=== PATIENT | male | born 1955 | race African-American/Black ===

== ENCOUNTER 2019-07-29 09:14 | Inpatient (IN) | payer OTHER ==
[2019-07-29 09:33] VITALS: BMI 31.6
--- NOTE | 2019-07-29 10:45 | HP ---
COWS - Scale Resting Pulse: 0= IN 80 or Below Sweatin= Chills/Flushing Restless Observation: 0= Sits Still Pupil Size: 0= Normal to Room Light Bone or Joint Aches: 0= None Runny Nose/ Eye Tearin= Nasal Congestion GI Upset > 30mins: 0= None Tremor Observation: 1= Tremor [place], Not Seen Yawning Observation: 0= None Anxiety or Irritability: 1=Feels Anxious/Irritable Goose Flesh Skin: 0=Smooth Skin COWS Score: 4 CIWA Score Nausea/Vomitin-No Nausea/No Vomiting Muscle Tremors: 2 Anxiety: 2 Agitation: 2 Paroxysmal Sweats: 2 Orientation: 1-Uncertain about Date Tacttile Disturbances: 2-Mild Itch/Numbness/Burn Auditory Disturbances: 0-None Visual Disturbances: 0-None Headache: 0-None Present CIWA-Ar Total Score: 11 - Admission Criteria [facility]ASAS Guidelines: Admission for Medically Managed Detox: Requires at least one of the followin. CIWA greater than 12 2. Seizures within the past 24 hours 3. Delirium tremens within the past 24 hours 4. Hallucinations within the past 24 hours 5. Acute intervention needed for co occurring medical disorder 6. Acute intervention needed for co occurring psychiatric disorder 7. Severe withdrawal that cannot be handled at a lower level of care (continued vomiting, continued diarrhea, abnormal vital signs) requiring intravenous medication and/or fluids 8. Patient presents the following: Acute intervention needed for co-occurring med or psych disorder Admission Criteria Met: Admission criteria met Admitting History and Physical - Admission Chief Complaint: alcohol withdrwal sx History of Present Illness: Patient is a 63 yo male AA homeless male with hx of alcohol and opioid dependence is here seeking inpatient detox d/t withdrawal sx. On Bup for opioid use disorder last dose two days ago, continues to use intravenous heroin. Last detox [facility] one month ago. Patient reports [facility]. Denies hx of overdose seizures or blackouts. PMHX: PVD Bilateral, Hep C treated Psych: depression, reports no meds at this time Denies SI/HI or hx of suicide attempt Others' Prescriptions Patient Name: Maciej Daigle Date: 1955 Address: [facility] [address] Sex: Male Rx Written Rx Dispensed Drug Quantity Days Supply Prescriber Name 07/11/2019 07/12/2019 buprenorphine-naloxone 8-2 mg sl film 10 10 Eddie Allen Patient Name: Maciej Daigle Date: 1955 Address: [place] [address] Sex: Male Rx Written Rx Dispensed Drug Quantity Days Supply Prescriber Name 07/09/2019 07/09/2019 buprenorphine-naloxone 8-2 mg sl film 7 7 Vero Hadley DO Patient Name: Maciej Daigle Date: 1955 Address: [address] [address] Sex: Male Rx Written Rx Dispensed Drug Quantity Days Supply Prescriber Name 06/07/2019 06/07/2019 lorazepam 1 mg tablet 1 1 Gloria Fernández MD) 05/30/2019 05/30/2019 buprenorphine-naloxone 8-2 mg sl film 30 10 Gloria Fernández) Patient Name: Maciej Daigle Date: 1955 Address: [address] [place] [address] Sex: Male Rx Written Rx Dispensed Drug Quantity Days Supply Prescriber Name 04/04/2019 04/07/2019 buprenorphine-naloxone 8-2 mg sl film 45 15 Laura Wyattradhathompson Patient Name: Maciej Daigle Date: 1955 Address: [address] [place] [address] Sex: Male Rx Written Rx Dispensed Drug Quantity Days Supply Prescriber Name 02/21/2019 02/21/2019 buprenorphine-naloxone 8-2 mg sl film 42 14 Julio Cesar Aberua History Source: Patient Limitations to Obtaining History: No Limitations - Smoking History Smoking history: Current every day smoker Have you smoked in the past 12 months: Yes Aproximately how many cigarettes per day: 10 - Alcohol/Substance Use Hx Alcohol Use: Yes ([facility]) Admission [facility] Allergies/Adverse Reactions: Allergies Allergy/AdvReac Type Severity Reaction Status Date / Time No Known Allergies Allergy Verified 07/29/19 09:29 Exam Limitations: No Limitations - Ebola screening Have you traveled outside of the country in the last 21 days: No (N) Have you had contact with anyone from an Ebola affected area: No - Review of Systems Constitutional: Loss of Appetite, Changes in sleep, Unintentional Wgt. Loss ( weight loss 20+ lb) EENT: reports: Nose Congestion Respiratory: reports: No Symptoms reported Cardiac: reports: No Symptoms Reported GI: reports: Poor Appetite, Poor Fluid Intake : reports: No Symptoms Reported Musculoskeletal: reports: Back Pain, Joint Pain Integumentary: reports: Pruritus, Other (bilateral leg edema, + lesion on right LE) Neuro: reports: Tingling (feet) Endocrine: reports: Increased Thirst Hematology: reports: No Symptoms Reported Psychiatric: reports: Orientated x3, Anxious Other Systems: Reviewed and Negative Patient History - Patient Medical History Hx Anemia: No Hx Asthma: No Hx Chronic Obstructive Pulmonary Disease (COPD): No Hx Cancer: No Hx Cardiac Disorders: No Hx Congestive Heart Failure: No Hx Hypertension: No Hx Hypercholesterolemia: No Hx Pacemaker: No HX Cerebrovascular Accident: No Hx Seizures: No Hx Dementia: No Hx Diabetes: No Hx Gastrointestinal Disorders: No Hx Liver Disease: No Hx Genitourinary Disorders: No Hx Sexually Transmitted Disorders: No Hx Renal Disease (ESRD): No Hx Thyroid Disease: No Hx Human Immunodeficiency Virus (HIV): No (NEVER TESTED & DECLINED TESTING.) Hx Hepatitis C: Yes (treated ) Hx Depression: Yes Hx Suicide Attempt: No (DENIES) Hx Bipolar Disorder: No Hx Schizophrenia: No - Patient Surgical History Past Surgical History: No - PPD History Previous Implant?: No Documented Results: Negative w/proof Date: 11/05/14 Results: 0 mm PPD to be Administered?: Yes - Smoking Cessation Smoking history: Current every day smoker Have you smoked in the past 12 months: Yes Aproximately how many cigarettes per day: 10 Cigars Per Day: 0 Hx Chewing Tobacco Use: No Initiated information on smoking cessation: Yes 'Breaking Loose' booklet given: 07/29/19 - Substance & Tx. History Hx Alcohol Use: Yes Hx Substance Use: Yes Substance Use Type: Alcohol, Heroin Hx Substance Use Treatment: Yes ([facility] one month ago ) - Substances abused Alcohol Frequency: 3-6 times per week Amount used: 1/2 pint of liquor Age of first use: 17 Date of last use: 07/28/19 Heroin Substance route: Injection Frequency: Daily Amount used: 7-10bags/bag Age of first use: 29 Date of last use: 07/28/19 Admission Physical Exam BHS - Vital Signs Vital Signs: Vital Signs - 24 hr 07/29/19 09:29 Temperature 97.5 F L Pulse Rate 64 Respiratory 18 Rate Blood Pressure 133/75 - Physical General Appearance: Yes: Disheveled, Obese, Anxious HEENTM: Yes: EOMI, Hearing grossly Normal, Normal ENT Inspection, Normocephalic , Normal Voice, DAWIT, Pharynx Normal, Tm's normal, Other (poor dentition) Respiratory: Yes: Chest Non-Tender, Lungs Clear, Normal Breath Sounds, No Respiratory Distress, No Accessory Muscle Use Neck: Yes: Within Normal Limits Breast: Yes: Breast Exam Deferred Cardiology: Yes: Regular Rhythm, Regular Rate Abdominal: Yes: Within Normal Limits Genitourinary: Yes: Within Normal Limits Back: Yes: Normal Inspection Musculoskeletal: Yes: full range of Motion, Gait Steady, Pelvis Stable Extremities: Yes: Normal Capillary Refill, Normal Inspection, Normal Range of Motion, Non-Tender 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: 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, Fully Oriented, Motor Strength 5/5 Integumentary: Yes: Normal Color, Dry, Warm, Other (lesion right upper extremitiy, no cellulitis, tinea pedis, + edema present nonpitting bilateral lower extremities) Lymphatic: Yes: Within Normal Limits - Diagnostic (1) Alcohol dependence with withdrawal, uncomplicated Current Visit: Yes Status: Acute (2) Opioid dependence, uncomplicated Current Visit: Yes Status: Acute (3) Leg skin lesion, right Current Visit: Yes Status: Acute (4) Nicotine dependence Current Visit: Yes Status: Chronic Qualifiers: Nicotine product type: cigarettes Cleared for Admission [facility] - Detox or Rehab [facility] Level of Care: Medically Managed Detox Regimen/Protocol: Ativan Breathalyzer - Breathalyzer Breathalyzer: 0 Urine Drug Screen - Test Device Lot number: [id number] Expiration date: 03/14/21 - Control Is test valid?: Yes - Results Drug screen NEGATIVE: No Urine drug screen results: FEN-Fentanyl, MOP-Opiates, BUP-Suboxone Inpatient Rehab Admission - Rehab Decision to Admit Inpatient rehab admission?: No
[2019-07-29] MEDS ORDERED: LORazepam 1 MG TABLET PO PRN (10:53)
[2019-07-29] MEDS ORDERED: NICOTINE POLACRILEX 2 MG GUM BUC PRN (10:53)
[2019-07-29] MEDS ORDERED: MAG HYDROX/AL HYDROX/SIMETH 30 ML UNIT-DOSE CUP PO PRN (10:53)
[2019-07-29] MEDS ORDERED: BISMUTH SUBSALICYLATE 524 MG/30 ML UD PO PRN (10:53)
[2019-07-29] MEDS ORDERED: IBUPROFEN 400 MG TABLET (FP) PO PRN (10:53)
[2019-07-29] MEDS ORDERED: MAGNESIUM HYDROX 2400MG/30ML ORAL SUSPENSION 30 ML CUP PO PRN (10:53)
[2019-07-29] MEDS ORDERED: MENTHOL/PHENOL 1 EACH UD MM PRN (10:53)
[2019-07-29] MEDS ORDERED: METHOCARBAMOL 500 MG TABLET PO PRN (10:53)
[2019-07-29] MEDS ORDERED: MELATONIN 5 MG TABLETS PO PRN (10:53)
[2019-07-29] MEDS ORDERED: MAGNESIUM CITRATE 300 ML BOTTLE PO PRN (10:53)
[2019-07-29] MEDS: BUPRENORPHINE/NALOXONE 8 MG/2 MG FILM PACKET SL SCH (13:39)
[2019-07-29] MEDS: BACITRACIN 15 GM TUBE TOPICAL OINTMENT TP SCH ×2 (14:27→23:34)
[2019-07-29] MEDS: LORazepam 2 MG TABLET PO SCH ×2 (20:42→23:34)
[2019-07-29] MEDS: THIAMINE HCL 100 MG TABLET (FP) PO SCH (23:34)
[2019-07-30] MEDS: LORazepam 2 MG TABLET PO SCH ×4 (05:53→23:08)
--- NOTE | 2019-07-30 10:12 | PN ---
S CIWA - CIWA Score Nausea/Vomitin-Mild Nausea/No Vomiting Muscle Tremors: 1-None Visible, but [place] Anxiety: 2 Agitation: 2 Paroxysmal Sweats: 1-Minimal Palms Moist Orientation: 0-Oriented Tacttile Disturbances: 1-Very Mild Itch/Numbness Auditory Disturbances: 0-None Visual Disturbances: 0-None Headache: 1-Very Mild CIWA-Ar Total Score: 9 BHS Progress Note (SOAP) Subjective: alert,irritable,anxious,interrupted sleep,pain in the body Objective: 07/30/19 10:08 Vital Signs Temperature 97.7 F 07/30/19 09:30 Pulse Rate 60 07/30/19 09:30 Respiratory Rate 18 07/30/19 09:30 Blood Pressure 145/74 07/30/19 09:30 O2 Sat by Pulse Oximetry (%) 07/30/19 10:11 patient will have blood tests done in am,discussed with patient Assessment: 07/30/19 10:12 withdrawal symptom Plan: continue detox ativan regimen with suboxone maintenance
[2019-07-30] MEDS: NICOTINE 14 MG/24 HOURS TOPICAL PATCH TD SCH (10:38)
[2019-07-30] MEDS: PRENATAL VITAMINS W/ FOLIC ACID TABLET (FP) PO SCH (10:39)
[2019-07-30] MEDS: BUPRENORPHINE/NALOXONE 8 MG/2 MG FILM PACKET SL SCH (10:39)
[2019-07-30] MEDS: BACITRACIN 15 GM TUBE TOPICAL OINTMENT TP SCH ×2 (10:41→23:31)
[2019-07-30 11:14] LABS: EPI CELLS 5.5 /HPF (0-5/HPF); HYALINE CASTS 7 /lpf (0-8); PH,URINE 7.5 (5.0-8.0); URINE APPEARANCE CLEAR; URINE BACTERIA 535.3 /hpf (NEGATIVE); URINE BILIRUBIN NEGATIVE (NEGATIVE); URINE COLOR YELLOW; URINE GLUCOSE (UA) NEGATIVE (NEGATIVE); URINE KETONE TRACE (NEGATIVE); URINE LEUK ESTERASE TRACE (NEGATIVE); URINE NITRITE NEGATIVE (NEGATIVE); URINE PROTEIN NEGATIVE (NEGATIVE); URINE RBC 1 /hpf (0-4); URINE WBC 6 /hpf (0-5)
--- NOTE | 2019-07-30 14:54 | EKG ---
Test Reason : Blood Pressure : / mmHG Vent. Rate : 065 BPM Atrial Rate : 065 BPM P-R Int : 162 ms QRS Dur : 098 ms QT Int : 448 ms P-R-T Axes : 074 013 007 degrees QTc Int : 465 ms NORMAL SINUS RHYTHM NORMAL ECG NO PREVIOUS ECGS AVAILABLE Confirmed by ALEXANDER BURROWS MD ([id number]) on 07/30/2019 2:53:56 PM Referred By: Confirmed By:ALEXANDER BURROWS MD
[2019-07-30] MEDS: THIAMINE HCL 100 MG TABLET (FP) PO SCH (23:08)
[2019-07-31] MEDS: LORazepam 1 MG TABLET PO SCH ×4 (06:57→23:04)
[2019-07-31 09:53] LABS: HEMATOCRIT 40.3 % (35.4-49); HEMOGLOBIN 13.2 GM/dL (11.7-16.9); MCH 31.4 pg (25.7-33.7); MCHC 32.8 g/dl (32.0-35.9); MEAN CELL VOLUME 95.5 fl (80-96); MEAN PLT VOLUME 8.4 fl (7.5-11.1); PLATELET COUNT 317 K/MM3 (134-434); RBC 4.21 M/mm3 (4.00-5.60); RDW 13.3 % (11.9-15.9)
[2019-07-31] MEDS: PRENATAL VITAMINS W/ FOLIC ACID TABLET (FP) PO SCH (10:23)
[2019-07-31] MEDS: NICOTINE 14 MG/24 HOURS TOPICAL PATCH TD SCH (10:23)
[2019-07-31] MEDS: BUPRENORPHINE/NALOXONE 8 MG/2 MG FILM PACKET SL SCH (10:23)
--- NOTE | 2019-07-31 10:24 | PN ---
[facility] CIWA - CIWA Score Nausea/Vomitin-Mild Nausea/No Vomiting Muscle Tremors: 2 Anxiety: 2 Agitation: 2 Paroxysmal Sweats: No Perspiration Orientation: 0-Oriented Tacttile Disturbances: 1-Very Mild Itch/Numbness Auditory Disturbances: 0-None Visual Disturbances: 0-None Headache: 1-Very Mild CIWA-Ar Total Score: 9 S Progress Note (SOAP) Subjective: alert,irritable,anxious,interrupted sleep,tremor,painin the body Objective: 07/31/19 10:25 Vital Signs Temperature 98.3 F 07/31/19 09:24 Pulse Rate 70 07/31/19 09:24 Respiratory Rate 18 07/31/19 09:24 Blood Pressure 107/52 L 07/31/19 09:24 O2 Sat by Pulse Oximetry (%) 07/31/19 10:25 Laboratory Last Values WBC 7.0 K/mm3 (4.0-10.0) 07/31/19 08:00 RBC 4.21 M/mm3 (4.00-5.60) 07/31/19 08:00 Hgb 13.2 GM/dL (11.7-16.9) 07/31/19 08:00 Hct 40.3 % (35.4-49) 07/31/19 08:00 MCV 95.5 fl (80-96) 07/31/19 08:00 MCH 31.4 pg (25.7-33.7) 07/31/19 08:00 MCHC 32.8 g/dl (32.0-35.9) 07/31/19 08:00 RDW 13.3 % (11.9-15.9) 07/31/19 08:00 Plt Count 317 K/MM3 (134-434) D 07/31/19 08:00 MPV 8.4 fl (7.5-11.1) 07/31/19 08:00 Urine Color Yellow 07/30/19 08:15 Urine Appearance Clear 07/30/19 08:15 Urine pH 7.5 (5.0-8.0) 07/30/19 08:15 Ur Specific [place] 1.017 (1.010-1.035) 07/30/19 08:15 Urine Protein Negative (NEGATIVE) 07/30/19 08:15 Urine Glucose (UA) Negative (NEGATIVE) 07/30/19 08:15 Urine Ketones Trace (NEGATIVE) H 07/30/19 08:15 Urine Blood Negative (NEGATIVE) 07/30/19 08:15 Urine Nitrite Negative (NEGATIVE) 07/30/19 08:15 Urine Bilirubin Negative (NEGATIVE) 07/30/19 08:15 Urine Urobilinogen 2.0 mg/dL (0.2-1.0) 07/30/19 08:15 Ur Leukocyte Esterase Trace (NEGATIVE) 07/30/19 08:15 Urine WBC (Auto) 6 /hpf (0-5) 07/30/19 08:15 Urine RBC (Auto) 1 /hpf (0-4) 07/30/19 08:15 Urine Casts (Auto) 7 /lpf (0-8) 07/30/19 08:15 U Epithel Cells (Auto) 5.5 /HPF (0-5/HPF) 07/30/19 08:15 Urine Bacteria (Auto) 535.3 /hpf (NEGATIVE) 07/30/19 08:15 labs pending Assessment: 07/31/19 10:26 withdrawal symptom Plan: continued detox ativan regimen and suboxone maintenance
[2019-07-31] MEDS: BACITRACIN 15 GM TUBE TOPICAL OINTMENT TP SCH ×2 (10:25→23:04)
[2019-07-31 10:56] LABS: BILIRUBIN,TOTAL 0.8 mg/dL (0.2-1); BLOOD UREA NITROGEN 5.2 mg/dL (7-18); CALCIUM 8.9 mg/dL (8.5-10.1); CREATININE 0.8 mg/dL (0.55-1.3); POTASSIUM 3.6 mmol/L (3.5-5.1); TOT PROT 6.3 g/dl (6.4-8.2)
[2019-07-31] MEDS: THIAMINE HCL 100 MG TABLET (FP) PO SCH (23:04)
[2019-08-01] MEDS ORDERED: LORazepam 0.5 MG TABLET PO PRN
[2019-08-01] MEDS: LORazepam 0.5 MG TABLET PO SCH ×4 (06:07→23:11)
[2019-08-01] MEDS: PRENATAL VITAMINS W/ FOLIC ACID TABLET (FP) PO SCH (10:27)
[2019-08-01] MEDS: BUPRENORPHINE/NALOXONE 8 MG/2 MG FILM PACKET SL SCH (10:27)
[2019-08-01] MEDS: NICOTINE 14 MG/24 HOURS TOPICAL PATCH TD SCH (10:27)
[2019-08-01] MEDS: BACITRACIN 15 GM TUBE TOPICAL OINTMENT TP SCH ×2 (10:29→23:11)
--- NOTE | 2019-08-01 10:47 | PN ---
S CIWA - CIWA Score Nausea/Vomitin-No Nausea/No Vomiting Muscle Tremors: 1-None Visible, but [place] Anxiety: 1-Mildly Anxious Agitation: 1-Slight > Activity Paroxysmal Sweats: No Perspiration Orientation: 0-Oriented Tacttile Disturbances: 1-Very Mild Itch/Numbness Auditory Disturbances: 0-None Visual Disturbances: 0-None Headache: 1-Very Mild CIWA-Ar Total Score: 5 BHS Progress Note (SOAP) Subjective: alert,irritable,anxious,interrupted sleep Objective: 08/01/19 10:47 Vital Signs Temperature 98.9 F 08/01/19 09:56 Pulse Rate 71 08/01/19 09:56 Respiratory Rate 18 08/01/19 09:56 Blood Pressure 148/63 08/01/19 09:56 O2 Sat by Pulse Oximetry (%) Assessment: 08/01/19 10:47 withdrawal symptom Plan: continue detox ativan regimen,discharge in am
[2019-08-01] MEDS: THIAMINE HCL 100 MG TABLET (FP) PO SCH (23:11)
[2019-08-02] MEDS ORDERED: LORazepam 0.5 MG TABLET PO ONE (05:00)
--- NOTE | 2019-08-02 08:47 | DS ---
[facility] Detox Discharge Summary Admission Date: 07/29/19 Discharge Date: 08/02/19 - History Present History: Alcohol Dependence, Opioid Dependence - Physical Exam Results Vital Signs: Vital Signs Temperature 97.9 F 08/02/19 05:00 Pulse Rate 64 08/02/19 05:00 Respiratory Rate 20 08/02/19 05:00 Blood Pressure 107/60 08/02/19 05:00 O2 Sat by Pulse Oximetry (%) Pertinent Admission Physical Exam Findings: Vital Signs Temperature 97.9 F 08/02/19 05:00 Pulse Rate 64 08/02/19 05:00 Respiratory Rate 20 08/02/19 05:00 Blood Pressure 107/60 08/02/19 05:00 O2 Sat by Pulse Oximetry (%) Laboratory Tests 07/30/19 07/31/19 07/31/19 08:15 08:00 08:00 WBC 7.0 RBC 4.21 Hgb 13.2 Hct 40.3 MCV 95.5 MCH 31.4 MCHC 32.8 RDW 13.3 Plt Count 317 D MPV 8.4 Sodium 144 Potassium 3.6 Chloride 105 Carbon Dioxide 31 Anion Gap 7 L BUN 5.2 L Creatinine 0.8 Est GFR (CKD-EPI)AfAm 110.96 Est GFR (CKD-EPI)NonAf 95.74 Random Glucose 90 Calcium 8.9 Total Bilirubin 0.8 AST 10 L ALT 16 Alkaline Phosphatase 115 Total Protein 6.3 L Albumin 3.0 L Urine Color Yellow Urine Appearance Clear Urine pH 7.5 Ur Specific [place] 1.017 Urine Protein Negative Urine Glucose (UA) Negative Urine Ketones Trace H Urine Blood Negative Urine Nitrite Negative Urine Bilirubin Negative Urine Urobilinogen 2.0 Ur Leukocyte Esterase Trace Urine WBC (Auto) 6 Urine RBC (Auto) 1 Urine Casts (Auto) 7 U Epithel Cells (Auto) 5.5 Urine Bacteria (Auto) 535.3 RPR Titer 07/31/19 08:00 WBC RBC Hgb Hct MCV MCH MCHC RDW Plt Count MPV Sodium Potassium Chloride Carbon Dioxide Anion Gap BUN Creatinine Est GFR (CKD-EPI)AfAm Est GFR (CKD-EPI)NonAf Random Glucose Calcium Total Bilirubin AST ALT Alkaline Phosphatase Total Protein Albumin Urine Color Urine Appearance Urine pH Ur Specific [place] Urine Protein Urine Glucose (UA) Urine Ketones Urine Blood Urine Nitrite Urine Bilirubin Urine Urobilinogen Ur Leukocyte Esterase Urine WBC (Auto) Urine RBC (Auto) Urine Casts (Auto) U Epithel Cells (Auto) Urine Bacteria (Auto) RPR Titer Nonreactive aaox3 ambulating no acute distress - Treatment Hospital Course: Detox Protocol Followed, Detoxed Safely, Responded well, Discharged Condition Good, Rehab Referral Accepted Patient has Accepted a Rehab Referral to: pt referred to [facility] rehab - Medication Discharge Medications: Ambulatory Orders NK [No Known Home Medication] 11/03/14 - Diagnosis (1) Alcohol dependence with withdrawal, uncomplicated Current Visit: Yes Status: Chronic (2) Leg skin lesion, right Current Visit: Yes Status: Acute (3) Opioid dependence, uncomplicated Current Visit: Yes Status: Acute (4) Nicotine dependence Current Visit: Yes Status: Chronic Qualifiers: Nicotine product type: cigarettes Substance use status: uncomplicated Qualified Code(s): F17.210 - Nicotine dependence, cigarettes, uncomplicated (5) Drug-induced mood disorder Current Visit: No Status: Acute (6) Heroin dependence Current Visit: No Status: Acute (7) Syncope Current Visit: No Status: Acute (8) Insomnia Current Visit: No Status: Chronic (9) Schizoaffective disorder Current Visit: No Status: Suspected - AMA Did Patient Leave Against Medical Advice: No
[2019-08-02] MEDS: BUPRENORPHINE/NALOXONE 8 MG/2 MG FILM PACKET SL SCH (10:07)
[2019-08-02] MEDS: NICOTINE 14 MG/24 HOURS TOPICAL PATCH TD SCH (10:08)
[2019-08-02] MEDS: PRENATAL VITAMINS W/ FOLIC ACID TABLET (FP) PO SCH (10:08)
[2019-08-02] MEDS: BACITRACIN 15 GM TUBE TOPICAL OINTMENT TP SCH (10:08)
[2019-08-02 14:06] VITALS: BP 136/64; PULSE 72; TEMP 98.1
== END 2019-08-02 15:16 | disposition home or self-care (01) | DRG 773 ==
LOC: YASAS 09:14 → Y6N 11:07
PROVIDERS: ADMIT Allergy & Immunology; ATTEND Allergy & Immunology
PROC: HZ2ZZZZ Detoxification Services for Substance Abuse Treatment (ICD-10-PCS; principal; 2019-07-29)
DX: F11.23 Opioid dependence with withdrawal (principal); F10.230 Alcohol dependence with withdrawal, uncomplicated; F17.210 Nicotine dependence, cigarettes, uncomplicated; F19.24 Other psychoactive substance dependence with psychoactive substance-induced mood disorder; F25.9 Schizoaffective disorder, unspecified; G47.00 Insomnia, unspecified; L98.9 Disorder of the skin and subcutaneous tissue, unspecified; E66.9 Obesity, unspecified; Z68.31 Body mass index [BMI] 31.0-31.9, adult
CPT/HCPCS: 36415; 80053; 81003; 85027; 86593; 93005; 93010

== ENCOUNTER 2020-10-31 12:39 | Inpatient (IN) | payer OTHER ==
[2020-10-31 16:34] VITALS: BMI 32.3
[2020-10-31] MEDS ORDERED: NICOTINE POLACRILEX 2 MG GUM BUC PRN (18:09)
[2020-10-31] MEDS ORDERED: METHOCARBAMOL 500 MG TABLET PO PRN (18:09)
[2020-10-31] MEDS ORDERED: BISMUTH SUBSALICYLATE 524 MG/30 ML UD PO PRN (18:09)
[2020-10-31] MEDS ORDERED: MENTHOL/PHENOL 1 EACH UD MM PRN (18:09)
[2020-10-31] MEDS ORDERED: MELATONIN 5 MG TABLETS PO PRN (18:09)
[2020-10-31] MEDS ORDERED: cloNIDine HCL 0.1 MG TABLET PO PRN (18:09)
[2020-10-31] MEDS ORDERED: ACETAMINOPHEN 325 MG TABLET (FP) PO PRN ×2 (18:09)
[2020-10-31] MEDS ORDERED: MAGNESIUM CITRATE 300 ML BOTTLE PO PRN (18:09)
[2020-10-31] MEDS ORDERED: IBUPROFEN 400 MG TABLET (FP) PO PRN (18:09)
[2020-10-31] MEDS ORDERED: ONDANSETRON *ODT* 4 MG TABLET SL PRN (18:09)
[2020-10-31] MEDS ORDERED: METHADONE HCL 10 MG TABLET (FOR DETOX USE ONLY) PO ONE (18:09)
[2020-10-31] MEDS ORDERED: MAGNESIUM HYDROX 2400MG/30ML ORAL SUSPENSION 30 ML CUP PO PRN (18:09)
[2020-10-31] MEDS ORDERED: MAG HYDROX/AL HYDROX/SIMETH 30 ML UNIT-DOSE CUP PO PRN (18:09)
[2020-10-31] MEDS ORDERED: DICLOFENAC POTASSIUM 50 MG PO PRN (18:13)
[2020-10-31] MEDS ORDERED: hydrOXYzine PAMOATE 25 MG CAPSULE (FP) PO PRN (21:01)
[2020-10-31] MEDS: THIAMINE HCL 100 MG TABLET (FP) PO SCH (22:57)
[2020-11-01] MEDS ORDERED: METHADONE HCL 5 MG TABLET (FOR DETOX USE ONLY) ONE (09:04)
[2020-11-01] MEDS ORDERED: METHADONE HCL 10 MG TABLET (FOR DETOX USE ONLY) ONE (09:05)
[2020-11-01 09:52] LABS: HEMATOCRIT 41.7 % (35.4-49); HEMOGLOBIN 13.6 GM/dL (11.7-16.9); MCH 31.8 pg (25.7-33.7); MCHC 32.6 g/dl (32.0-35.9); MEAN CELL VOLUME 97.7 fl (80-96); MEAN PLT VOLUME 9.1 fl (7.5-11.1); PLATELET COUNT 273 K/MM3 (134-434); RBC 4.27 M/mm3 (4.00-5.60); RDW 12.8 % (11.9-15.9); WHITE BLOOD COUNT 4.9 K/mm3 (4.0-10.0)
[2020-11-01] MEDS ORDERED: METHADONE (DETOX) 20 MG, METHADONE (DETOX) 5 MG PO ONE (10:00)
[2020-11-01 10:26] LABS: POTASSIUM 4.1 mmol/L (3.5-5.1)
[2020-11-01 10:31] LABS: CALCIUM 9.8 mg/dL (8.5-10.1)
[2020-11-01 10:32] LABS: ALBUMIN 3.5 g/dl (3.4-5.0); BLOOD UREA NITROGEN 10.6 mg/dL (7-18)
[2020-11-01 10:35] LABS: CREATININE 0.9 mg/dL (0.55-1.3)
[2020-11-01 10:36] LABS: BILIRUBIN,TOTAL 0.8 mg/dL (0.2-1); TOT PROT 7.1 g/dl (6.4-8.2)
[2020-11-01] MEDS: NICOTINE 7 MG/24 HOURS TOPICAL PATCH TD SCH ×2 (11:12→11:18)
[2020-11-01] MEDS: PRENATAL VITAMINS W/ FOLIC ACID TABLET (FP) PO SCH (11:12)
[2020-11-01] MEDS: HYDROCHLOROTHIAZIDE 25 MG TABLET (FP) PO SCH (11:12)
[2020-11-01] MEDS: THIAMINE HCL 100 MG TABLET (FP) PO SCH (23:09)
[2020-11-02] MEDS ORDERED: METHADONE HCL 10 MG TABLET (FOR DETOX USE ONLY) PO ONE (10:00)
[2020-11-02] MEDS: HYDROCHLOROTHIAZIDE 25 MG TABLET (FP) PO SCH (11:32)
[2020-11-02] MEDS: NICOTINE 7 MG/24 HOURS TOPICAL PATCH TD SCH (11:32)
[2020-11-02] MEDS: PRENATAL VITAMINS W/ FOLIC ACID TABLET (FP) PO SCH (11:33)
[2020-11-02] MEDS ORDERED: ONDANSETRON *ODT* 4 MG TABLET SL ONE (16:08)
[2020-11-02] MEDS: FAMOTIDINE 20 MG TABLET PO SCH ×2 (18:42→23:14)
[2020-11-02] MEDS: THIAMINE HCL 100 MG TABLET (FP) PO SCH (23:14)
[2020-11-03] MEDS ORDERED: METHADONE HCL 10 MG TABLET (FOR DETOX USE ONLY) ONE (09:29)
[2020-11-03] MEDS ORDERED: METHADONE HCL 5 MG TABLET (FOR DETOX USE ONLY) ONE (09:29)
[2020-11-03] MEDS ORDERED: METHADONE (DETOX) 10 MG, METHADONE (DETOX) 5 MG PO ONE (10:00)
[2020-11-03] MEDS: PRENATAL VITAMINS W/ FOLIC ACID TABLET (FP) PO SCH (11:08)
[2020-11-03] MEDS: FAMOTIDINE 20 MG TABLET PO SCH ×2 (11:09→23:15)
[2020-11-03] MEDS: NICOTINE 7 MG/24 HOURS TOPICAL PATCH TD SCH (11:09)
[2020-11-03] MEDS: HYDROCHLOROTHIAZIDE 25 MG TABLET (FP) PO SCH (11:09)
[2020-11-03] MEDS: THIAMINE HCL 100 MG TABLET (FP) PO SCH (23:15)
[2020-11-04] MEDS ORDERED: METHADONE HCL 10 MG TABLET (FOR DETOX USE ONLY) PO ONE (10:00)
[2020-11-04] MEDS: PRENATAL VITAMINS W/ FOLIC ACID TABLET (FP) PO SCH (10:11)
[2020-11-04] MEDS: HYDROCHLOROTHIAZIDE 25 MG TABLET (FP) PO SCH (10:12)
[2020-11-04] MEDS: FAMOTIDINE 20 MG TABLET PO SCH ×2 (10:14→23:33)
[2020-11-04] MEDS: NICOTINE 7 MG/24 HOURS TOPICAL PATCH TD SCH (10:14)
[2020-11-04] MEDS: THIAMINE HCL 100 MG TABLET (FP) PO SCH (23:33)
[2020-11-05] MEDS ORDERED: METHADONE HCL 5 MG TABLET (FOR DETOX USE ONLY) PO ONE (06:00)
[2020-11-05 09:19] VITALS: BP 131/81; PULSE 106; TEMP 97.3
== END 2020-11-05 09:55 | disposition home or self-care (01) | DRG 773 ==
LOC: YASAS 12:39 → Y6N 19:01
PROVIDERS: ADMIT Allergy & Immunology; ATTEND Allergy & Immunology
PROC: HZ2ZZZZ Detoxification Services for Substance Abuse Treatment (ICD-10-PCS; principal; 2020-10-31)
DX: F11.23 Opioid dependence with withdrawal (principal); F10.20 Alcohol dependence, uncomplicated; F17.210 Nicotine dependence, cigarettes, uncomplicated; F41.9 Anxiety disorder, unspecified; I10 Essential (primary) hypertension; I73.9 Peripheral vascular disease, unspecified; K21.9 Gastro-esophageal reflux disease without esophagitis; L98.8 Other specified disorders of the skin and subcutaneous tissue; M19.90 Unspecified osteoarthritis, unspecified site; R74.8 Abnormal levels of other serum enzymes; R60.0 Localized edema
CPT/HCPCS: 36415; 80053; 85027; 86780; 93005; 93010; C9803; U0003

== ENCOUNTER 2021-03-04 17:12 | Inpatient (IN) | payer OTHER ==
[2021-03-04 18:56] VITALS: BMI 26.7
[2021-03-04] MEDS ORDERED: MENTHOL/PHENOL 1 EACH UD MM PRN (22:20)
[2021-03-04] MEDS ORDERED: IBUPROFEN 400 MG TABLET (FP) PO PRN (22:20)
[2021-03-04] MEDS ORDERED: ACETAMINOPHEN 325 MG TABLET (FP) PO PRN ×2 (22:20)
[2021-03-04] MEDS ORDERED: MAGNESIUM HYDROX 2400MG/30ML ORAL SUSPENSION 30 ML CUP PO PRN (22:20)
[2021-03-04] MEDS ORDERED: METHOCARBAMOL 500 MG TABLET PO PRN (22:20)
[2021-03-04] MEDS ORDERED: MAGNESIUM CITRATE 300 ML BOTTLE PO PRN (22:20)
[2021-03-04] MEDS ORDERED: NICOTINE POLACRILEX 2 MG GUM BUC PRN (22:20)
[2021-03-04] MEDS ORDERED: MAG HYDROX/AL HYDROX/SIMETH 30 ML UNIT-DOSE CUP PO PRN (22:20)
[2021-03-04] MEDS ORDERED: BISMUTH SUBSALICYLATE 524 MG/30 ML PO PRN (22:20)
[2021-03-04] MEDS ORDERED: methaDONE HCL 10 MG TABLET (FOR DETOX USE ONLY) PO ONE (22:27)
[2021-03-04] MEDS ORDERED: cloNIDine HCL 0.1 MG TABLET PO PRN (22:27)
[2021-03-04] MEDS ORDERED: methaDONE HCL 10 MG TABLET (FOR DETOX USE ONLY) ONE (23:25)
[2021-03-05 10:42] LABS: HEMATOCRIT 38.3 % (35.4-49); HEMOGLOBIN 12.6 GM/dL (11.7-16.9); MCH 31.5 pg (25.7-33.7); MCHC 32.7 g/dl (32.0-35.9); MEAN CELL VOLUME 96.3 fl (80-96); MEAN PLT VOLUME 8.7 fl (7.5-11.1); PLATELET COUNT 305 10^3/uL (134-434); RBC 3.98 M/mm3 (4.00-5.60); RDW 12.8 % (11.9-15.9)
[2021-03-05 10:43] LABS: CALCIUM 9.1 mg/dL (8.5-10.1)
[2021-03-05 10:45] LABS: ALBUMIN 3.4 g/dl (3.4-5.0)
[2021-03-05 10:47] LABS: CREATININE 0.8 mg/dL (0.55-1.3)
[2021-03-05 10:49] LABS: BILIRUBIN,TOTAL 0.6 mg/dL (0.2-1); TOT PROT 6.8 g/dl (6.4-8.2)
[2021-03-05] MEDS ORDERED: methaDONE HCL 10 MG TABLET (FOR DETOX USE ONLY) ONE (11:07)
[2021-03-05] MEDS: PRENATAL VITAMINS W/ FOLIC ACID TABLET (FP) PO SCH (11:08)
[2021-03-05] MEDS: FAMOTIDINE 20 MG TABLET PO SCH ×2 (11:08→22:39)
[2021-03-05] MEDS: NICOTINE 14 MG/24 HOURS TOPICAL PATCH TD SCH (11:09)
[2021-03-05] MEDS: MELATONIN 5 MG TABLETS PO SCH (22:39)
[2021-03-05] MEDS: THIAMINE HCL 100 MG TABLET (FP) PO SCH (22:40)
[2021-03-06] MEDS ORDERED: methaDONE HCL 10 MG TABLET (FOR DETOX USE ONLY) PO ONE (10:00)
[2021-03-06] MEDS: ONDANSETRON *ODT* 4 MG TABLET SL PRN (10:41)
[2021-03-06] MEDS: HYDROCHLOROTHIAZIDE 25 MG TABLET (FP) PO SCH (11:50)
[2021-03-06] MEDS: PRENATAL VITAMINS W/ FOLIC ACID TABLET (FP) PO SCH (11:50)
[2021-03-06] MEDS: FAMOTIDINE 20 MG TABLET PO SCH ×2 (11:50→22:46)
[2021-03-06] MEDS: NICOTINE 14 MG/24 HOURS TOPICAL PATCH TD SCH (11:50)
[2021-03-06] MEDS: THIAMINE HCL 100 MG TABLET (FP) PO SCH (22:46)
[2021-03-06] MEDS: MELATONIN 5 MG TABLETS PO SCH (22:46)
[2021-03-07] MEDS ORDERED: methaDONE HCL 10 MG TABLET (FOR DETOX USE ONLY) ONE (09:02)
[2021-03-07] MEDS: HYDROCHLOROTHIAZIDE 25 MG TABLET (FP) PO SCH (10:37)
[2021-03-07] MEDS: NICOTINE 14 MG/24 HOURS TOPICAL PATCH TD SCH (10:37)
[2021-03-07] MEDS: FAMOTIDINE 20 MG TABLET PO SCH ×2 (10:37→22:22)
[2021-03-07] MEDS: PRENATAL VITAMINS W/ FOLIC ACID TABLET (FP) PO SCH (10:39)
[2021-03-07] MEDS: THIAMINE HCL 100 MG TABLET (FP) PO SCH (22:22)
[2021-03-07] MEDS: MELATONIN 5 MG TABLETS PO SCH (22:22)
[2021-03-08] MEDS ORDERED: methaDONE HCL 10 MG TABLET (FOR DETOX USE ONLY) PO ONE (10:00)
[2021-03-08] MEDS ORDERED: LOPERAMIDE HCL 2 MG CAPSULE PO ONE (10:23)
[2021-03-08] MEDS: HYDROCHLOROTHIAZIDE 25 MG TABLET (FP) PO SCH (10:25)
[2021-03-08] MEDS: NICOTINE 14 MG/24 HOURS TOPICAL PATCH TD SCH (10:26)
[2021-03-08] MEDS: ONDANSETRON *ODT* 4 MG TABLET SL PRN (10:26)
[2021-03-08] MEDS: FAMOTIDINE 20 MG TABLET PO SCH ×2 (10:26→22:56)
[2021-03-08] MEDS: PRENATAL VITAMINS W/ FOLIC ACID TABLET (FP) PO SCH (10:27)
[2021-03-08] MEDS: THIAMINE HCL 100 MG TABLET (FP) PO SCH (22:56)
[2021-03-08] MEDS: MELATONIN 5 MG TABLETS PO SCH (22:56)
[2021-03-09 09:04] VITALS: BP 113/80; PULSE 99; TEMP 98.2
[2021-03-09] MEDS: NICOTINE 14 MG/24 HOURS TOPICAL PATCH TD SCH (10:47)
[2021-03-09] MEDS: HYDROCHLOROTHIAZIDE 25 MG TABLET (FP) PO SCH (10:47)
[2021-03-09] MEDS: PRENATAL VITAMINS W/ FOLIC ACID TABLET (FP) PO SCH (10:47)
[2021-03-09] MEDS: FAMOTIDINE 20 MG TABLET PO SCH (10:47)
== END 2021-03-09 12:20 | disposition other institution (70) | DRG 773 ==
LOC: YASAS 17:12 → UNDOADMIN 03-05 02:31 → Y3N 03-05 02:31 → Y6N 03-05 09:04
PROVIDERS: ADMIT Allergy & Immunology; ATTEND Allergy & Immunology
PROC: HZ2ZZZZ Detoxification Services for Substance Abuse Treatment (ICD-10-PCS; principal; 2021-03-05)
DX: F11.23 Opioid dependence with withdrawal (principal); F17.210 Nicotine dependence, cigarettes, uncomplicated; I10 Essential (primary) hypertension; I73.9 Peripheral vascular disease, unspecified; K21.9 Gastro-esophageal reflux disease without esophagitis; M19.90 Unspecified osteoarthritis, unspecified site; R74.8 Abnormal levels of other serum enzymes
CPT/HCPCS: 36415; 80053; 85027; 86780; C9803; Q0162; U0003; U0005

== ENCOUNTER 2021-03-09 12:40 | Inpatient (IN) | payer OTHER ==
[2021-03-09] MEDS ORDERED: ACETAMINOPHEN 325 MG TABLET (FP) PO PRN (15:33)
[2021-03-09] MEDS ORDERED: LOPERAMIDE HCL 2 MG CAPSULE PO PRN (15:33)
[2021-03-09] MEDS ORDERED: MAG HYDROX/AL HYDROX/SIMETH 30 ML UNIT-DOSE CUP PO PRN (15:33)
[2021-03-09] MEDS ORDERED: MAGNESIUM CITRATE 300 ML BOTTLE PO PRN (15:33)
[2021-03-09] MEDS ORDERED: NICOTINE POLACRILEX 2 MG GUM BC PRN (15:33)
[2021-03-09] MEDS ORDERED: guaiFENesin 200 MG/10 ML 10 ML UNIT-DOSE CUPS PO PRN (15:33)
[2021-03-09] MEDS ORDERED: MAGNESIUM HYDROX 2400MG/30ML ORAL SUSPENSION 30 ML CUP PO PRN (15:33)
[2021-03-09] MEDS ORDERED: P-EPHED 60MG/TRIPROLIDI 2.5MG TABLET PO PRN (15:33)
[2021-03-09] MEDS ORDERED: IBUPROFEN 400 MG TABLET (FP) PO PRN (15:33)
[2021-03-09] MEDS: hydrOXYzine PAMOATE 25 MG CAPSULE (FP) PO SCH ×2 (19:36→21:54)
[2021-03-09] MEDS: MELATONIN 5 MG TABLETS PO SCH (21:54)
[2021-03-09] MEDS: THIAMINE HCL 100 MG TABLET (FP) PO SCH (21:54)
[2021-03-09] MEDS: FAMOTIDINE 20 MG TABLET PO SCH (21:54)
[2021-03-10] MEDS: hydrOXYzine PAMOATE 25 MG CAPSULE (FP) PO SCH ×5 (06:57→22:56)
[2021-03-10 07:29] VITALS: TEMP 97.8
[2021-03-10] MEDS ORDERED: HYDROCHLOROTHIAZIDE 25 MG TABLET (FP) PO SCH (10:00)
[2021-03-10] MEDS ORDERED: NICOTINE 14 MG/24 HOURS TOPICAL PATCH TD SCH (10:00)
[2021-03-10] MEDS ORDERED: PRENATAL VITAMINS W/ FOLIC ACID TABLET (FP) PO SCH (10:00)
[2021-03-10] MEDS: FAMOTIDINE 20 MG TABLET PO SCH ×2 (10:08→22:56)
[2021-03-10 11:47] VITALS: BP 113/81; PULSE 99
[2021-03-10] MEDS: THIAMINE HCL 100 MG TABLET (FP) PO SCH (22:56)
[2021-03-10] MEDS: MELATONIN 5 MG TABLETS PO SCH (22:56)
[2021-03-11] MEDS: hydrOXYzine PAMOATE 25 MG CAPSULE (FP) PO SCH (06:37)
== END 2021-03-11 09:07 | disposition home or self-care (01) | DRG 772 ==
LOC: YASAS 12:40 → Y3W 12:42
PROVIDERS: ADMIT Allergy & Immunology; ATTEND Allergy & Immunology
PROC: HZ42ZZZ Group Counseling for Substance Abuse Treatment, Cognitive-Behavioral (ICD-10-PCS; principal; 2021-03-09)
DX: F11.20 Opioid dependence, uncomplicated (principal); F41.9 Anxiety disorder, unspecified; I10 Essential (primary) hypertension; I73.9 Peripheral vascular disease, unspecified; K21.9 Gastro-esophageal reflux disease without esophagitis; M19.90 Unspecified osteoarthritis, unspecified site; B18.2 Chronic viral hepatitis C

== ENCOUNTER 2021-07-21 22:27 | Observation (INO) | payer OTHER ==
[2021-07-21 22:43] VITALS: BMI 28.0
[2021-07-22] MEDS ORDERED: VANCOMYCIN 1 GM in D5W (PRE-DOCKED) 1,000 MG/250 ML IVPB ONE (00:09)
[2021-07-22] MEDS ORDERED: PIPERACILLIN/TAZOB 3.375 GM 3.375 GM in DEXTROSE 5%-WATER - 50 ML IVPB ONE (00:10)
[2021-07-22] MEDS ORDERED: VANCOMYCIN 1 GRAM (PRE-DOCKED) 1,000 MG/250 ML BAG IVPB ONE (00:20)
[2021-07-22 01:18] LABS: BASO % 0.5 % (0-2.0); EOS % 0.5 % (0-4.5); HEMOGLOBIN 11.5 GM/dL (11.7-16.9); LYMPH % 9.4 % (8-40); MCH 31.5 pg (25.7-33.7); MCHC 33.7 g/dl (32.0-35.9); MEAN CELL VOLUME 93.5 fl (80-96); MEAN PLT VOLUME 7.1 fl (7.5-11.1); MONO % 6.5 % (3.8-10.2); NEUT % 83.1 % (42.8-82.8); PLATELET COUNT 431 10^3/uL (134-434); RBC 3.64 M/mm3 (4.00-5.60); WHITE BLOOD COUNT 9.5 K/mm3 (4.0-10.0)
[2021-07-22] MEDS ORDERED: ACETAMINOPHEN 1000 MG/100 ML VIAL IVPB ONE (01:18)
[2021-07-22] MEDS ORDERED: ACETAMINOPHEN INJECTION 100 ML IVPB ONE (01:25)
[2021-07-22 01:36] LABS: CHLORIDE 106 mmol/L (98-107); SODIUM 143 mmol/L (136-145)
[2021-07-22 01:38] LABS: CALCIUM 8.7 mg/dL (8.5-10.1)
[2021-07-22 01:39] LABS: ANION GAP 9 MMOL/L (8-16); BLOOD UREA NITROGEN 7.6 mg/dL (7-18); CO2 29 mmol/L (21-32); GLUCOSE,RANDOM 102 mg/dL (74-106)
[2021-07-22 01:40] LABS: INR 1.04 (0.83-1.09); PROTHROMBIN TIME (PATIENT) 11.6 SEC (9.7-13.0)
[2021-07-22] MEDS ORDERED: PIPERACILLIN/TAZOB 3.375 GM 3.375 GM/50 ML BAG IVPB ONE (01:41)
[2021-07-22 01:42] LABS: CREATININE 0.7 mg/dL (0.55-1.3); SGOT/AST 9 U/L (15-37); SGPT/ALT 11 U/L (13-61)
[2021-07-22 01:43] LABS: ACTIVATED PTT 32.6 SECONDS (25.2-36.5); TOT PROT 6.7 g/dl (6.4-8.2)
[2021-07-22 01:44] LABS: BILIRUBIN,TOTAL 0.5 mg/dL (0.2-1)
[2021-07-22 01:45] LABS: ALK PHOS 114 U/L (45-117)
[2021-07-22 01:47] LABS: N-TERMINAL BNP 76.6 pg/ml (5-125)
[2021-07-22] MEDS ORDERED: ENOXAPARIN NA (PORCINE) 100 MG/1 ML DISP.SYRIN SQ ONE ×2 (02:13→02:19)
[2021-07-22] MEDS ORDERED: ACETAMINOPHEN 325 MG TABLET (FP) PO PRN (04:13)
[2021-07-22] MEDS ORDERED: methaDONE HCL 10 MG TABLET (FOR DETOX USE ONLY) PO SCH (04:30)
[2021-07-22] MEDS ORDERED: methaDONE HCL 10 MG TABLET ONE ×2 (05:08→09:18)
[2021-07-22] MEDS ORDERED: methaDONE HCL 10 MG TABLET PO PRN (05:44)
[2021-07-22] MEDS ORDERED: ZINC OXIDE/PANTHENOL/VITAMIN E 56 GM TUBE TP PRN (07:23)
[2021-07-22 08:15] LABS: BASO % 0.8 % (0-2.0); EOS % 0.3 % (0-4.5); HEMATOCRIT 36.2 % (35.4-49); LYMPH % 9.3 % (8-40); MCH 31.6 pg (25.7-33.7); MCHC 33.1 g/dl (32.0-35.9); MEAN CELL VOLUME 95.4 fl (80-96); MEAN PLT VOLUME 7.8 fl (7.5-11.1); MONO % 5.8 % (3.8-10.2); NEUT % 83.8 % (42.8-82.8); PLATELET COUNT 421 10^3/uL (134-434); RDW 13.8 % (11.9-15.9); WHITE BLOOD COUNT 9.3 K/mm3 (4.0-10.0)
[2021-07-22] MEDS ORDERED: cloNIDine HCL 0.1 MG TABLET PO PRN (08:41)
[2021-07-22] MEDS ORDERED: methaDONE HCL 10 MG TABLET PO ONE (08:41)
[2021-07-22 08:54] LABS: CALCIUM 8.9 mg/dL (8.5-10.1)
[2021-07-22 08:55] LABS: ALBUMIN 2.8 g/dl (3.4-5.0); BLOOD UREA NITROGEN 6.6 mg/dL (7-18)
[2021-07-22 08:56] LABS: MAGNESIUM 2.2 mg/dL (1.8-2.4)
[2021-07-22 08:58] LABS: CREATININE 0.7 mg/dL (0.55-1.3)
[2021-07-22 08:59] LABS: BILIRUBIN,TOTAL 0.7 mg/dL (0.2-1)
[2021-07-22 09:01] LABS: PHOSPHOROUS 2.4 mg/dL (2.5-4.9)
[2021-07-22 09:03] LABS: TOT PROT 6.3 g/dl (6.4-8.2)
[2021-07-22] MEDS ORDERED: HYDROCHLOROTHIAZIDE 25 MG TABLET (FP) ONE (09:27)
[2021-07-22] MEDS ORDERED: FAMOTIDINE 20 MG TABLET ONE (09:27)
[2021-07-22] MEDS ORDERED: ENOXAPARIN NA (PORCINE) 40 MG/0.4 ML DISP.SYRIN SQ ONE (09:28)
[2021-07-22] MEDS: ENOXAPARIN NA (PORCINE) 40 MG/0.4 ML DISP.SYRIN SQ SCH (09:34)
[2021-07-22] MEDS: FAMOTIDINE 20 MG TABLET PO SCH ×2 (09:34→21:50)
[2021-07-22] MEDS ORDERED: NAPH,MB-DB/K PH,MBDB POWDER PACKET PO ONE (09:49)
[2021-07-22] MEDS ORDERED: THIAMINE HCL 200 MG/2 ML VIAL IVPB ONE (09:55)
[2021-07-22] MEDS ORDERED: HYDROCHLOROTHIAZIDE 25 MG TABLET (FP) PO SCH (10:00)
[2021-07-22] MEDS ORDERED: TAMSULOSIN HCL 0.4 MG CAP ONE (10:27)
[2021-07-22] MEDS ORDERED: NAPH,MB-DB/K PH,MBDB POWDER PACKET ONE (10:27)
[2021-07-22] MEDS ORDERED: THIAMINE HCL 200 MG/2 ML VIAL ONE (10:27)
[2021-07-22] MEDS ORDERED: FOLIC ACID 1 MG TABLET (FP) ONE (10:27)
[2021-07-22] MEDS: TAMSULOSIN HCL 0.4 MG CAP PO SCH (10:42)
[2021-07-22] MEDS ORDERED: ceFAZolin SODIUM 1 GM VIAL ONE ×2 (10:45→17:32)
[2021-07-22] MEDS: FOLIC ACID 1 MG TABLET (FP) PO SCH (11:05)
[2021-07-22] MEDS: NICOTINE 14 MG/24 HOURS TOPICAL PATCH TD SCH (11:11)
[2021-07-22] MEDS: CEFAZOLIN 1 GM in DEXTROSE 5%-WATER - 50 ML IVPB SCH ×2 (11:30→17:47)
[2021-07-22] MEDS ORDERED: SERTRALINE HCL 50 MG TABLET (FP) ONE (14:06)
[2021-07-22] MEDS: SERTRALINE HCL 50 MG TABLET (FP) PO SCH (14:08)
[2021-07-22] MEDS ORDERED: DEXTROSE 5%-WATER - 50 ML IVPB ONE (17:32)
[2021-07-22] MEDS: THIAMINE HCL 100 MG TABLET (FP) PO SCH (21:50)
[2021-07-23] MEDS ORDERED: ceFAZolin SODIUM 1 GM VIAL ONE ×3 (01:17→16:27)
[2021-07-23] MEDS ORDERED: DEXTROSE 5%-WATER - 50 ML IVPB ONE ×3 (01:17→16:28)
[2021-07-23] MEDS: CEFAZOLIN 1 GM in DEXTROSE 5%-WATER - 50 ML IVPB SCH ×3 (01:31→17:14)
[2021-07-23] MEDS: HYDROCHLOROTHIAZIDE 25 MG TABLET (FP) PO SCH (06:37)
[2021-07-23 09:25] LABS: BASO % 0.8 % (0-2.0); EOS % 0.2 % (0-4.5); HEMATOCRIT 31.8 % (35.4-49); HEMOGLOBIN 10.7 GM/dL (11.7-16.9); LYMPH % 15.2 % (8-40); MCH 31.5 pg (25.7-33.7); MCHC 33.7 g/dl (32.0-35.9); MEAN CELL VOLUME 93.4 fl (80-96); MEAN PLT VOLUME 7.4 fl (7.5-11.1); MONO % 7.7 % (3.8-10.2); NEUT % 76.1 % (42.8-82.8); PLATELET COUNT 355 10^3/uL (134-434); RBC 3.41 M/mm3 (4.00-5.60); RDW 14.1 % (11.9-15.9); WHITE BLOOD COUNT 6.6 K/mm3 (4.0-10.0)
[2021-07-23] MEDS: ENOXAPARIN NA (PORCINE) 40 MG/0.4 ML DISP.SYRIN SQ SCH (10:01)
[2021-07-23] MEDS: NICOTINE 14 MG/24 HOURS TOPICAL PATCH TD SCH ×2 (10:01→10:15)
[2021-07-23 10:02] LABS: CALCIUM 8.7 mg/dL (8.5-10.1)
[2021-07-23] MEDS: FOLIC ACID 1 MG TABLET (FP) PO SCH (10:02)
[2021-07-23] MEDS: THIAMINE HCL 100 MG TABLET (FP) PO SCH ×2 (10:02→21:14)
[2021-07-23] MEDS: FAMOTIDINE 20 MG TABLET PO SCH ×2 (10:02→21:14)
[2021-07-23] MEDS: SERTRALINE HCL 50 MG TABLET (FP) PO SCH (10:02)
[2021-07-23 10:03] LABS: ALBUMIN 2.4 g/dl (3.4-5.0)
[2021-07-23 10:05] LABS: BLOOD UREA NITROGEN 6.7 mg/dL (7-18); MAGNESIUM 2.1 mg/dL (1.8-2.4)
[2021-07-23] MEDS ORDERED: methaDONE HCL 10 MG TABLET ONE (10:05)
[2021-07-23 10:08] LABS: CREATININE 0.7 mg/dL (0.55-1.3); PHOSPHOROUS 2.6 mg/dL (2.5-4.9)
[2021-07-23 10:09] LABS: BILIRUBIN,TOTAL 0.7 mg/dL (0.2-1)
[2021-07-23 10:10] LABS: TOT PROT 5.7 g/dl (6.4-8.2)
[2021-07-23] MEDS ORDERED: POTASSIUM CHLORIDE TABS 20 MEQ TABLET.ER (FP) PO ONE (10:34)
[2021-07-23] MEDS: TAMSULOSIN HCL 0.4 MG CAP PO SCH (13:53)
[2021-07-23] MEDS ORDERED: AMMONIUM LACTATE 12% LOTION 225 GM BOTTLE TP PRN (14:46)
[2021-07-23] MEDS: AMINO ACIDS/PROTEIN HYDROLYS 30 ML LIQUID.PKT PO SCH (17:14)
[2021-07-24] MEDS ORDERED: ceFAZolin SODIUM 1 GM VIAL ONE ×3 (01:37→17:27)
[2021-07-24] MEDS ORDERED: DEXTROSE 5%-WATER - 50 ML IVPB ONE ×3 (01:38→17:27)
[2021-07-24] MEDS: CEFAZOLIN 1 GM in DEXTROSE 5%-WATER - 50 ML IVPB SCH ×3 (02:51→19:03)
[2021-07-24] MEDS: HYDROCHLOROTHIAZIDE 25 MG TABLET (FP) PO SCH (06:05)
[2021-07-24 06:46] LABS: BASO % 0.9 % (0-2.0); EOS % 0.1 % (0-4.5); HEMOGLOBIN 11.1 GM/dL (11.7-16.9); LYMPH % 15.6 % (8-40); MCH 31.9 pg (25.7-33.7); MCHC 33.5 g/dl (32.0-35.9); MEAN PLT VOLUME 8.3 fl (7.5-11.1); MONO % 9.5 % (3.8-10.2); NEUT % 73.9 % (42.8-82.8); PLATELET COUNT 335 10^3/uL (134-434); RBC 3.48 M/mm3 (4.00-5.60); RDW 14.2 % (11.9-15.9); WHITE BLOOD COUNT 6.8 K/mm3 (4.0-10.0)
[2021-07-24 06:56] LABS: CALCIUM 8.7 mg/dL (8.5-10.1)
[2021-07-24 06:57] LABS: BLOOD UREA NITROGEN 8.6 mg/dL (7-18)
[2021-07-24 07:00] LABS: CREATININE 0.7 mg/dL (0.55-1.3)
[2021-07-24] MEDS ORDERED: methaDONE HCL 10 MG TABLET PO ONE (10:00)
[2021-07-24] MEDS: FOLIC ACID 1 MG TABLET (FP) PO SCH (10:15)
[2021-07-24] MEDS: MULTIVITAMINS (DAILY MVI) TABLET (FP) PO SCH (10:15)
[2021-07-24] MEDS: NICOTINE 14 MG/24 HOURS TOPICAL PATCH TD SCH ×2 (10:17→10:45)
[2021-07-24] MEDS: THIAMINE HCL 100 MG TABLET (FP) PO SCH ×2 (10:18→21:36)
[2021-07-24] MEDS: FAMOTIDINE 20 MG TABLET PO SCH ×2 (10:18→21:36)
[2021-07-24] MEDS: TAMSULOSIN HCL 0.4 MG CAP PO SCH (10:18)
[2021-07-24] MEDS: AMINO ACIDS/PROTEIN HYDROLYS 30 ML LIQUID.PKT PO SCH ×2 (10:19→19:03)
[2021-07-24] MEDS: SERTRALINE HCL 50 MG TABLET (FP) PO SCH (10:19)
[2021-07-24] MEDS: ENOXAPARIN NA (PORCINE) 40 MG/0.4 ML DISP.SYRIN SQ SCH ×2 (10:29→10:45)
[2021-07-25] MEDS ORDERED: ceFAZolin SODIUM 1 GM VIAL ONE ×3 (02:56→18:39)
[2021-07-25] MEDS ORDERED: DEXTROSE 5%-WATER - 50 ML IVPB ONE ×3 (02:56→18:39)
[2021-07-25] MEDS: CEFAZOLIN 1 GM in DEXTROSE 5%-WATER - 50 ML IVPB SCH ×3 (02:57→18:40)
[2021-07-25] MEDS: HYDROCHLOROTHIAZIDE 25 MG TABLET (FP) PO SCH (06:09)
[2021-07-25 08:10] LABS: BASO % 0.8 % (0-2.0); EOS % 0.2 % (0-4.5); HEMOGLOBIN 12.6 GM/dL (11.7-16.9); LYMPH % 16.8 % (8-40); MCH 31.3 pg (25.7-33.7); MCHC 33.1 g/dl (32.0-35.9); MEAN CELL VOLUME 94.4 fl (80-96); MEAN PLT VOLUME 7.5 fl (7.5-11.1); MONO % 10.4 % (3.8-10.2); NEUT % 71.8 % (42.8-82.8); PLATELET COUNT 369 10^3/uL (134-434); RBC 4.03 M/mm3 (4.00-5.60); RDW 14.4 % (11.9-15.9); WHITE BLOOD COUNT 7.7 K/mm3 (4.0-10.0)
[2021-07-25] MEDS ORDERED: methaDONE HCL 10 MG TABLET ONE (09:53)
[2021-07-25] MEDS: MULTIVITAMINS (DAILY MVI) TABLET (FP) PO SCH (10:17)
[2021-07-25] MEDS: NICOTINE 14 MG/24 HOURS TOPICAL PATCH TD SCH ×2 (10:17→13:36)
[2021-07-25] MEDS: TAMSULOSIN HCL 0.4 MG CAP PO SCH (10:17)
[2021-07-25] MEDS: FAMOTIDINE 20 MG TABLET PO SCH ×2 (10:17→22:25)
[2021-07-25] MEDS: THIAMINE HCL 100 MG TABLET (FP) PO SCH ×2 (10:18→22:24)
[2021-07-25] MEDS: AMINO ACIDS/PROTEIN HYDROLYS 30 ML LIQUID.PKT PO SCH ×2 (10:18→18:37)
[2021-07-25] MEDS: FOLIC ACID 1 MG TABLET (FP) PO SCH (10:18)
[2021-07-25] MEDS: SERTRALINE HCL 50 MG TABLET (FP) PO SCH (10:18)
[2021-07-25] MEDS: ENOXAPARIN NA (PORCINE) 40 MG/0.4 ML DISP.SYRIN SQ SCH (10:18)
[2021-07-26] MEDS ORDERED: ceFAZolin SODIUM 1 GM VIAL ONE ×3 (01:09→16:25)
[2021-07-26] MEDS ORDERED: DEXTROSE 5%-WATER - 50 ML IVPB ONE ×3 (01:09→16:26)
[2021-07-26] MEDS: CEFAZOLIN 1 GM in DEXTROSE 5%-WATER - 50 ML IVPB SCH ×3 (01:16→17:08)
[2021-07-26] MEDS: HYDROCHLOROTHIAZIDE 25 MG TABLET (FP) PO SCH (06:06)
[2021-07-26] MEDS: AMINO ACIDS/PROTEIN HYDROLYS 30 ML LIQUID.PKT PO SCH ×2 (09:38→17:08)
[2021-07-26] MEDS: TAMSULOSIN HCL 0.4 MG CAP PO SCH (09:38)
[2021-07-26] MEDS: FOLIC ACID 1 MG TABLET (FP) PO SCH (09:39)
[2021-07-26] MEDS: NICOTINE 14 MG/24 HOURS TOPICAL PATCH TD SCH (09:40)
[2021-07-26] MEDS: MULTIVITAMINS (DAILY MVI) TABLET (FP) PO SCH (09:40)
[2021-07-26] MEDS: ENOXAPARIN NA (PORCINE) 40 MG/0.4 ML DISP.SYRIN SQ SCH (09:40)
[2021-07-26] MEDS: THIAMINE HCL 100 MG TABLET (FP) PO SCH ×2 (09:40→21:09)
[2021-07-26] MEDS: SERTRALINE HCL 50 MG TABLET (FP) PO SCH (09:41)
[2021-07-26] MEDS: FAMOTIDINE 20 MG TABLET PO SCH ×2 (09:42→21:09)
[2021-07-26] MEDS ORDERED: methaDONE HCL 10 MG TABLET PO ONE (10:00)
[2021-07-27] MEDS ORDERED: DEXTROSE 5%-WATER - 50 ML IVPB ONE ×3 (00:56→17:43)
[2021-07-27] MEDS ORDERED: ceFAZolin SODIUM 1 GM VIAL ONE ×3 (00:56→17:43)
[2021-07-27] MEDS: CEFAZOLIN 1 GM in DEXTROSE 5%-WATER - 50 ML IVPB SCH ×3 (01:21→17:52)
[2021-07-27] MEDS: HYDROCHLOROTHIAZIDE 25 MG TABLET (FP) PO SCH (06:35)
[2021-07-27] MEDS: FAMOTIDINE 20 MG TABLET PO SCH ×2 (10:09→22:18)
[2021-07-27] MEDS: THIAMINE HCL 100 MG TABLET (FP) PO SCH ×2 (10:09→22:18)
[2021-07-27] MEDS: FOLIC ACID 1 MG TABLET (FP) PO SCH (10:09)
[2021-07-27] MEDS: MULTIVITAMINS (DAILY MVI) TABLET (FP) PO SCH (10:10)
[2021-07-27] MEDS: SERTRALINE HCL 50 MG TABLET (FP) PO SCH (10:10)
[2021-07-27] MEDS: TAMSULOSIN HCL 0.4 MG CAP PO SCH (10:10)
[2021-07-27] MEDS: ENOXAPARIN NA (PORCINE) 40 MG/0.4 ML DISP.SYRIN SQ SCH (10:13)
[2021-07-27] MEDS: NICOTINE 14 MG/24 HOURS TOPICAL PATCH TD SCH (10:13)
[2021-07-27] MEDS: AMINO ACIDS/PROTEIN HYDROLYS 30 ML LIQUID.PKT PO SCH ×2 (10:17→16:46)
[2021-07-28] MEDS ORDERED: ceFAZolin SODIUM 1 GM VIAL ONE ×3 (00:57→17:01)
[2021-07-28] MEDS ORDERED: DEXTROSE 5%-WATER - 50 ML IVPB ONE ×3 (00:57→17:01)
[2021-07-28] MEDS: CEFAZOLIN 1 GM in DEXTROSE 5%-WATER - 50 ML IVPB SCH ×3 (03:11→17:15)
[2021-07-28] MEDS: HYDROCHLOROTHIAZIDE 25 MG TABLET (FP) PO SCH (06:37)
[2021-07-28 09:17] VITALS: BP 144/60; PULSE 82; TEMP 98.1
[2021-07-28] MEDS: ENOXAPARIN NA (PORCINE) 40 MG/0.4 ML DISP.SYRIN SQ SCH (09:17)
[2021-07-28] MEDS: AMINO ACIDS/PROTEIN HYDROLYS 30 ML LIQUID.PKT PO SCH ×2 (09:18→17:14)
[2021-07-28] MEDS: FAMOTIDINE 20 MG TABLET PO SCH (09:18)
[2021-07-28] MEDS: THIAMINE HCL 100 MG TABLET (FP) PO SCH (09:18)
[2021-07-28] MEDS: TAMSULOSIN HCL 0.4 MG CAP PO SCH (09:18)
[2021-07-28] MEDS: MULTIVITAMINS (DAILY MVI) TABLET (FP) PO SCH (09:18)
[2021-07-28] MEDS: SERTRALINE HCL 50 MG TABLET (FP) PO SCH (09:18)
[2021-07-28] MEDS: FOLIC ACID 1 MG TABLET (FP) PO SCH (09:19)
[2021-07-28] MEDS: NICOTINE 14 MG/24 HOURS TOPICAL PATCH TD SCH (09:25)
== END 2021-07-28 17:59 | disposition other institution (70) ==
LOC: JER 22:27 → UNDOADMOB 07-22 00:06 → INTOOBSV 07-22 00:06 → JERBED 07-22 00:06 → J7W 07-22 15:25
PROVIDERS: ATTEND Internal Medicine
PROC: 3E03329 Introduction of Other Anti-infective into Peripheral Vein, Percutaneous Approach (ICD-10-PCS; principal; 2021-07-22)
PROC: 3E033NZ Introduction of Analgesics, Hypnotics, Sedatives into Peripheral Vein, Percutaneous Approach (ICD-10-PCS; 2021-07-22)
PROC: 3E023GC Introduction of Other Therapeutic Substance into Muscle, Percutaneous Approach (ICD-10-PCS; 2021-07-22)
PROC: 3E033GC Introduction of Other Therapeutic Substance into Peripheral Vein, Percutaneous Approach (ICD-10-PCS; 2021-07-22)
DX: L03.115 Cellulitis of right lower limb (principal); F19.10 Other psychoactive substance abuse, uncomplicated; F10.10 Alcohol abuse, uncomplicated; L85.3 Xerosis cutis; D64.9 Anemia, unspecified; K46.9 Unspecified abdominal hernia without obstruction or gangrene; F11.13 Opioid abuse with withdrawal; I10 Essential (primary) hypertension; K21.9 Gastro-esophageal reflux disease without esophagitis; B19.20 Unspecified viral hepatitis C without hepatic coma; F41.9 Anxiety disorder, unspecified; M19.90 Unspecified osteoarthritis, unspecified site; B35.1 Tinea unguium; R60.0 Localized edema; R79.89 Other specified abnormal findings of blood chemistry; F17.210 Nicotine dependence, cigarettes, uncomplicated; I87.8 Other specified disorders of veins; Z29.9 Encounter for prophylactic measures, unspecified
CPT/HCPCS: 36415; 71045-TC-FY; 80048; 80053; 80061; 82550; 83036; 83735; 83880; 84100; 84443; 84484; 85025; 85379; 85610; 85730; 87040; 87070; 87076; 87077; 87186; 87205; 93005; 93010; 96365; 96367; 96372; 96375; 97116-GP; 97162-GP; 99285-25; C9803; G0378; J0131; U0003; U0005

== ENCOUNTER 2022-03-31 16:16 | Inpatient (IN) | payer OTHER ==
[2022-03-31 18:19] VITALS: BMI 25.5
[2022-03-31] MEDS ORDERED: DICYCLOMINE HCL 10 MG CAPSULE PO PRN (18:54)
[2022-03-31] MEDS ORDERED: BENZOCAINE/MENTHOL (CHLORASEPTIC ) LOZENGE MM PRN (18:54)
[2022-03-31] MEDS ORDERED: LOPERAMIDE HCL 2 MG CAPSULE PO PRN (18:54)
[2022-03-31] MEDS ORDERED: METHOCARBAMOL 500 MG TABLET PO PRN (18:54)
[2022-03-31] MEDS ORDERED: chlordiazePOXIDE HCL 25 MG CAPSULE PO PRN (18:54)
[2022-03-31] MEDS ORDERED: IBUPROFEN 400 MG TABLET (FP) PO PRN (18:54)
[2022-03-31] MEDS ORDERED: ONDANSETRON *ODT* 4 MG TABLET SL PRN (18:54)
[2022-03-31] MEDS ORDERED: ACETAMINOPHEN 325 MG TABLET (FP) PO PRN ×2 (18:54)
[2022-03-31] MEDS ORDERED: MAGNESIUM CITRATE 300 ML BOTTLE PO PRN (18:54)
[2022-03-31] MEDS ORDERED: cloNIDine HCL 0.1 MG TABLET PO PRN (18:54)
[2022-03-31] MEDS ORDERED: MAG HYDROX/AL HYDROX/SIMETH 30 ML UNIT-DOSE CUP PO PRN (18:54)
[2022-03-31] MEDS ORDERED: BISMUTH SUBSALICYLATE 524 MG/30 ML PO PRN (18:54)
[2022-03-31] MEDS ORDERED: IBUPROFEN 600 MG TABLET (FP) PO PRN (18:54)
[2022-03-31] MEDS ORDERED: methaDONE HCL 10 MG TABLET (FOR DETOX USE ONLY) PO ONE (20:00)
[2022-03-31] MEDS: chlordiazePOXIDE HCL 25 MG CAPSULE PO SCH (23:23)
[2022-03-31] MEDS: hydrOXYzine PAMOATE 25 MG CAPSULE (FP) PO SCH (23:24)
[2022-03-31] MEDS: PRENATAL VITAMINS W/ FOLIC ACID TABLET (FP) PO SCH (23:28)
[2022-03-31] MEDS: MELATONIN 5 MG TABLETS PO SCH (23:30)
[2022-03-31] MEDS: THIAMINE HCL 100 MG TABLET (FP) PO SCH (23:31)
[2022-04-01] MEDS: chlordiazePOXIDE HCL 25 MG CAPSULE PO SCH ×4 (08:09→22:47)
[2022-04-01] MEDS: hydrOXYzine PAMOATE 25 MG CAPSULE (FP) PO SCH ×5 (08:10→22:47)
[2022-04-01 10:23] LABS: HEMATOCRIT 34.3 % (35.4-49); HEMOGLOBIN 11.6 GM/dL (11.7-16.9); MCH 32.9 pg (25.7-33.7); MCHC 33.9 g/dl (32.0-35.9); MEAN CELL VOLUME 96.9 fl (80-96); MEAN PLT VOLUME 8.6 fl (7.5-11.1); PLATELET COUNT 249 10^3/uL (134-434); RBC 3.54 M/mm3 (4.00-5.60); RDW 13.5 % (11.9-15.9); WHITE BLOOD COUNT 7.5 K/mm3 (4.0-10.0)
[2022-04-01 10:31] LABS: CALCIUM 8.6 mg/dL (8.5-10.1)
[2022-04-01 10:32] LABS: ALBUMIN 2.8 g/dl (3.4-5.0); BLOOD UREA NITROGEN 11.7 mg/dL (7-18)
[2022-04-01 10:35] LABS: CREATININE 0.6 mg/dL (0.55-1.3)
[2022-04-01 10:36] LABS: BILIRUBIN,TOTAL 0.6 mg/dL (0.2-1)
[2022-04-01] MEDS: PRENATAL VITAMINS W/ FOLIC ACID TABLET (FP) PO SCH (10:45)
[2022-04-01] MEDS: AMMONIUM LACTATE 12% CREAM 140 GM TUBE TP SCH (10:46)
[2022-04-01] MEDS: MELATONIN 5 MG TABLETS PO SCH (22:47)
[2022-04-01] MEDS: THIAMINE HCL 100 MG TABLET (FP) PO SCH (22:48)
[2022-04-02] MEDS: chlordiazePOXIDE HCL 25 MG CAPSULE PO SCH ×4 (06:24→22:51)
[2022-04-02] MEDS: hydrOXYzine PAMOATE 25 MG CAPSULE (FP) PO SCH ×5 (06:24→22:51)
[2022-04-02] MEDS ORDERED: methaDONE HCL 10 MG TABLET (FOR DETOX USE ONLY) PO ONE (10:00)
[2022-04-02] MEDS: PRENATAL VITAMINS W/ FOLIC ACID TABLET (FP) PO SCH (10:25)
[2022-04-02] MEDS: AMMONIUM LACTATE 12% CREAM 140 GM TUBE TP SCH (10:25)
[2022-04-02] MEDS: MELATONIN 5 MG TABLETS PO SCH (22:51)
[2022-04-02] MEDS: THIAMINE HCL 100 MG TABLET (FP) PO SCH (22:51)
[2022-04-03] MEDS ORDERED: chlordiazePOXIDE HCL 10 MG CAPSULE PO PRN
[2022-04-03] MEDS: hydrOXYzine PAMOATE 25 MG CAPSULE (FP) PO SCH ×5 (06:21→22:38)
[2022-04-03] MEDS: chlordiazePOXIDE HCL 10 MG CAPSULE PO SCH ×4 (06:21→22:38)
[2022-04-03] MEDS: AMMONIUM LACTATE 12% CREAM 140 GM TUBE TP SCH (10:36)
[2022-04-03] MEDS: PRENATAL VITAMINS W/ FOLIC ACID TABLET (FP) PO SCH (10:36)
[2022-04-03] MEDS: THIAMINE HCL 100 MG TABLET (FP) PO SCH (22:38)
[2022-04-03] MEDS: MELATONIN 5 MG TABLETS PO SCH (22:38)
[2022-04-04] MEDS: chlordiazePOXIDE HCL 10 MG CAPSULE PO SCH ×2 (07:11→17:49)
[2022-04-04] MEDS: hydrOXYzine PAMOATE 25 MG CAPSULE (FP) PO SCH ×5 (07:12→22:57)
[2022-04-04] MEDS ORDERED: methaDONE HCL 10 MG TABLET (FOR DETOX USE ONLY) PO ONE (10:00)
[2022-04-04] MEDS: PRENATAL VITAMINS W/ FOLIC ACID TABLET (FP) PO SCH (10:22)
[2022-04-04] MEDS: AMMONIUM LACTATE 12% CREAM 140 GM TUBE TP SCH (10:23)
[2022-04-04] MEDS: MELATONIN 5 MG TABLETS PO SCH (22:57)
[2022-04-04] MEDS: THIAMINE HCL 100 MG TABLET (FP) PO SCH (22:57)
[2022-04-05] MEDS ORDERED: chlordiazePOXIDE HCL 10 MG CAPSULE PO ONE (05:00)
[2022-04-05] MEDS: hydrOXYzine PAMOATE 25 MG CAPSULE (FP) PO SCH ×5 (07:35→23:19)
[2022-04-05] MEDS: AMMONIUM LACTATE 12% CREAM 140 GM TUBE TP SCH (10:29)
[2022-04-05] MEDS: PRENATAL VITAMINS W/ FOLIC ACID TABLET (FP) PO SCH (10:29)
[2022-04-05] MEDS: THIAMINE HCL 100 MG TABLET (FP) PO SCH (23:19)
[2022-04-05] MEDS: MELATONIN 5 MG TABLETS PO SCH (23:19)
[2022-04-06] MEDS: hydrOXYzine PAMOATE 25 MG CAPSULE (FP) PO SCH (06:04)
[2022-04-06] MEDS ORDERED: hydrOXYzine PAMOATE 25 MG CAPSULE (FP) PO PRN (09:54)
[2022-04-06] MEDS: PRENATAL VITAMINS W/ FOLIC ACID TABLET (FP) PO SCH (10:03)
[2022-04-06] MEDS: AMMONIUM LACTATE 12% CREAM 140 GM TUBE TP SCH (10:05)
[2022-04-06] MEDS: BUPRENORPHINE/NALOXONE 2 MG/0.5 MG FILM PACKET SL SCH (10:36)
[2022-04-06] MEDS: THIAMINE HCL 100 MG TABLET (FP) PO SCH (21:35)
[2022-04-06] MEDS: MELATONIN 5 MG TABLETS PO SCH (21:35)
[2022-04-07] MEDS: PRENATAL VITAMINS W/ FOLIC ACID TABLET (FP) PO SCH (09:49)
[2022-04-07] MEDS: BUPRENORPHINE/NALOXONE 2 MG/0.5 MG FILM PACKET SL SCH (09:49)
[2022-04-07] MEDS: AMMONIUM LACTATE 12% CREAM 140 GM TUBE TP SCH (09:49)
[2022-04-07] MEDS: MELATONIN 5 MG TABLETS PO SCH (21:25)
[2022-04-07] MEDS: THIAMINE HCL 100 MG TABLET (FP) PO SCH (21:25)
[2022-04-08] MEDS: PRENATAL VITAMINS W/ FOLIC ACID TABLET (FP) PO SCH (09:36)
[2022-04-08] MEDS: AMMONIUM LACTATE 12% CREAM 140 GM TUBE TP SCH (09:36)
[2022-04-08] MEDS: BUPRENORPHINE/NALOXONE 2 MG/0.5 MG FILM PACKET SL SCH (09:36)
[2022-04-08] MEDS: THIAMINE HCL 100 MG TABLET (FP) PO SCH (21:34)
[2022-04-08] MEDS: MELATONIN 5 MG TABLETS PO SCH (21:34)
[2022-04-08] MEDS: BUPRENORPHINE/NALOXONE 4 MG/1 MG FILM PACKET SL SCH (21:34)
[2022-04-09] MEDS: BUPRENORPHINE/NALOXONE 4 MG/1 MG FILM PACKET SL SCH ×2 (10:06→21:06)
[2022-04-09] MEDS: PRENATAL VITAMINS W/ FOLIC ACID TABLET (FP) PO SCH (10:06)
[2022-04-09] MEDS: AMMONIUM LACTATE 12% CREAM 140 GM TUBE TP SCH (10:07)
[2022-04-09] MEDS: THIAMINE HCL 100 MG TABLET (FP) PO SCH (21:05)
[2022-04-09] MEDS: MELATONIN 5 MG TABLETS PO SCH (21:05)
[2022-04-10] MEDS: PRENATAL VITAMINS W/ FOLIC ACID TABLET (FP) PO SCH (09:28)
[2022-04-10] MEDS: AMMONIUM LACTATE 12% CREAM 140 GM TUBE TP SCH (09:28)
[2022-04-10] MEDS: BUPRENORPHINE/NALOXONE 4 MG/1 MG FILM PACKET SL SCH ×2 (09:28→22:07)
[2022-04-10] MEDS: MELATONIN 5 MG TABLETS PO SCH (22:08)
[2022-04-10] MEDS: THIAMINE HCL 100 MG TABLET (FP) PO SCH (22:09)
[2022-04-11] MEDS: BUPRENORPHINE/NALOXONE 4 MG/1 MG FILM PACKET SL SCH ×2 (10:18→21:28)
[2022-04-11] MEDS: PRENATAL VITAMINS W/ FOLIC ACID TABLET (FP) PO SCH (10:18)
[2022-04-11] MEDS: AMMONIUM LACTATE 12% CREAM 140 GM TUBE TP SCH (10:19)
[2022-04-11] MEDS: THIAMINE HCL 100 MG TABLET (FP) PO SCH (21:28)
[2022-04-11] MEDS: MELATONIN 5 MG TABLETS PO SCH (21:28)
[2022-04-12] MEDS: BUPRENORPHINE/NALOXONE 4 MG/1 MG FILM PACKET SL SCH ×2 (10:16→21:05)
[2022-04-12] MEDS: PRENATAL VITAMINS W/ FOLIC ACID TABLET (FP) PO SCH (10:16)
[2022-04-12] MEDS: AMMONIUM LACTATE 12% CREAM 140 GM TUBE TP SCH (10:17)
[2022-04-12] MEDS: MELATONIN 5 MG TABLETS PO SCH (21:04)
[2022-04-12] MEDS: THIAMINE HCL 100 MG TABLET (FP) PO SCH (21:04)
[2022-04-13] MEDS: PRENATAL VITAMINS W/ FOLIC ACID TABLET (FP) PO SCH (10:36)
[2022-04-13] MEDS: BUPRENORPHINE/NALOXONE 4 MG/1 MG FILM PACKET SL SCH ×2 (10:36→22:55)
[2022-04-13] MEDS: AMMONIUM LACTATE 12% CREAM 140 GM TUBE TP SCH (10:36)
[2022-04-13] MEDS: THIAMINE HCL 100 MG TABLET (FP) PO SCH (22:55)
[2022-04-13] MEDS: MELATONIN 5 MG TABLETS PO SCH (22:55)
[2022-04-14] MEDS: BUPRENORPHINE/NALOXONE 4 MG/1 MG FILM PACKET SL SCH (10:16)
[2022-04-14] MEDS: PRENATAL VITAMINS W/ FOLIC ACID TABLET (FP) PO SCH (10:16)
[2022-04-14] MEDS: AMMONIUM LACTATE 12% CREAM 140 GM TUBE TP SCH (10:17)
[2022-04-14] MEDS: BUPRENORPHINE/NALOXONE 8 MG/2 MG FILM PACKET SL SCH (23:47)
[2022-04-14] MEDS: MELATONIN 5 MG TABLETS PO SCH (23:47)
[2022-04-14] MEDS: THIAMINE HCL 100 MG TABLET (FP) PO SCH (23:47)
[2022-04-15] MEDS: PRENATAL VITAMINS W/ FOLIC ACID TABLET (FP) PO SCH (10:05)
[2022-04-15] MEDS: AMMONIUM LACTATE 12% CREAM 140 GM TUBE TP SCH (10:05)
[2022-04-15] MEDS: BUPRENORPHINE/NALOXONE 8 MG/2 MG FILM PACKET SL SCH ×2 (10:05→21:46)
[2022-04-15] MEDS: THIAMINE HCL 100 MG TABLET (FP) PO SCH (21:46)
[2022-04-15] MEDS: MELATONIN 5 MG TABLETS PO SCH (21:46)
[2022-04-16] MEDS: PRENATAL VITAMINS W/ FOLIC ACID TABLET (FP) PO SCH (10:36)
[2022-04-16] MEDS: AMMONIUM LACTATE 12% CREAM 140 GM TUBE TP SCH (10:37)
[2022-04-16] MEDS: BUPRENORPHINE/NALOXONE 8 MG/2 MG FILM PACKET SL SCH ×2 (10:37→21:31)
[2022-04-16] MEDS: MELATONIN 5 MG TABLETS PO SCH (21:30)
[2022-04-16] MEDS: THIAMINE HCL 100 MG TABLET (FP) PO SCH (21:30)
[2022-04-17] MEDS: PRENATAL VITAMINS W/ FOLIC ACID TABLET (FP) PO SCH (10:23)
[2022-04-17] MEDS: BUPRENORPHINE/NALOXONE 8 MG/2 MG FILM PACKET SL SCH ×2 (10:24→21:45)
[2022-04-17] MEDS: AMMONIUM LACTATE 12% CREAM 140 GM TUBE TP SCH (10:24)
[2022-04-17] MEDS: THIAMINE HCL 100 MG TABLET (FP) PO SCH (21:45)
[2022-04-17] MEDS: MELATONIN 5 MG TABLETS PO SCH (21:45)
[2022-04-18] MEDS: PRENATAL VITAMINS W/ FOLIC ACID TABLET (FP) PO SCH (10:23)
[2022-04-18] MEDS: BUPRENORPHINE/NALOXONE 8 MG/2 MG FILM PACKET SL SCH ×2 (10:23→21:32)
[2022-04-18] MEDS: AMMONIUM LACTATE 12% CREAM 140 GM TUBE TP SCH (10:23)
[2022-04-18] MEDS: THIAMINE HCL 100 MG TABLET (FP) PO SCH (21:32)
[2022-04-18] MEDS: MELATONIN 5 MG TABLETS PO SCH (21:32)
[2022-04-19 06:52] VITALS: RESP 18
[2022-04-19] MEDS: PRENATAL VITAMINS W/ FOLIC ACID TABLET (FP) PO SCH (10:40)
[2022-04-19] MEDS: AMMONIUM LACTATE 12% CREAM 140 GM TUBE TP SCH (10:40)
[2022-04-19] MEDS: BUPRENORPHINE/NALOXONE 8 MG/2 MG FILM PACKET SL SCH ×2 (10:40→21:56)
[2022-04-19] MEDS: THIAMINE HCL 100 MG TABLET (FP) PO SCH (21:56)
[2022-04-19] MEDS: MELATONIN 5 MG TABLETS PO SCH (21:56)
[2022-04-20] MEDS: BUPRENORPHINE/NALOXONE 8 MG/2 MG FILM PACKET SL SCH ×2 (09:38→21:19)
[2022-04-20] MEDS: AMMONIUM LACTATE 12% CREAM 140 GM TUBE TP SCH (09:38)
[2022-04-20] MEDS: PRENATAL VITAMINS W/ FOLIC ACID TABLET (FP) PO SCH (09:38)
[2022-04-20] MEDS: MAGNESIUM HYDROX 2400MG/30ML ORAL SUSPENSION 30 ML CUP PO PRN (11:08)
[2022-04-20] MEDS: THIAMINE HCL 100 MG TABLET (FP) PO SCH (23:13)
[2022-04-20] MEDS: MELATONIN 5 MG TABLETS PO SCH (23:13)
[2022-04-21] MEDS ORDERED: BUPRENORPHINE/NALOXONE 8 MG/2 MG FILM PACKET SL ONE (09:32)
[2022-04-21] MEDS: PRENATAL VITAMINS W/ FOLIC ACID TABLET (FP) PO SCH (10:33)
[2022-04-21] MEDS: BUPRENORPHINE/NALOXONE 8 MG/2 MG FILM PACKET SL SCH ×3 (10:33→21:27)
[2022-04-21] MEDS: AMMONIUM LACTATE 12% CREAM 140 GM TUBE TP SCH (10:34)
[2022-04-21] MEDS: MELATONIN 5 MG TABLETS PO SCH (21:28)
[2022-04-21] MEDS: THIAMINE HCL 100 MG TABLET (FP) PO SCH (21:28)
[2022-04-22] MEDS: AMMONIUM LACTATE 12% CREAM 140 GM TUBE TP SCH (10:20)
[2022-04-22] MEDS: BUPRENORPHINE/NALOXONE 8 MG/2 MG FILM PACKET SL SCH ×2 (10:21→23:15)
[2022-04-22] MEDS: PRENATAL VITAMINS W/ FOLIC ACID TABLET (FP) PO SCH (10:21)
[2022-04-22] MEDS: THIAMINE HCL 100 MG TABLET (FP) PO SCH (23:15)
[2022-04-22] MEDS: MELATONIN 5 MG TABLETS PO SCH (23:15)
[2022-04-23] MEDS: AMMONIUM LACTATE 12% CREAM 140 GM TUBE TP SCH (10:42)
[2022-04-23] MEDS: BUPRENORPHINE/NALOXONE 8 MG/2 MG FILM PACKET SL SCH ×2 (10:42→21:10)
[2022-04-23] MEDS: PRENATAL VITAMINS W/ FOLIC ACID TABLET (FP) PO SCH (10:42)
[2022-04-23] MEDS: THIAMINE HCL 100 MG TABLET (FP) PO SCH (21:10)
[2022-04-23] MEDS: MELATONIN 5 MG TABLETS PO SCH (21:10)
[2022-04-24] MEDS: AMMONIUM LACTATE 12% CREAM 140 GM TUBE TP SCH (10:06)
[2022-04-24] MEDS: BUPRENORPHINE/NALOXONE 8 MG/2 MG FILM PACKET SL SCH ×2 (10:07→21:39)
[2022-04-24] MEDS: PRENATAL VITAMINS W/ FOLIC ACID TABLET (FP) PO SCH (10:07)
[2022-04-24] MEDS: THIAMINE HCL 100 MG TABLET (FP) PO SCH (21:39)
[2022-04-24] MEDS: MELATONIN 5 MG TABLETS PO SCH (21:39)
[2022-04-25] MEDS: BUPRENORPHINE/NALOXONE 8 MG/2 MG FILM PACKET SL SCH ×2 (10:09→21:53)
[2022-04-25] MEDS: PRENATAL VITAMINS W/ FOLIC ACID TABLET (FP) PO SCH (10:10)
[2022-04-25] MEDS: AMMONIUM LACTATE 12% CREAM 140 GM TUBE TP SCH (10:10)
[2022-04-25] MEDS: THIAMINE HCL 100 MG TABLET (FP) PO SCH (21:53)
[2022-04-25] MEDS: MELATONIN 5 MG TABLETS PO SCH (21:53)
[2022-04-26] MEDS: AMMONIUM LACTATE 12% CREAM 140 GM TUBE TP SCH (10:09)
[2022-04-26] MEDS: BUPRENORPHINE/NALOXONE 8 MG/2 MG FILM PACKET SL SCH ×2 (10:09→22:10)
[2022-04-26] MEDS: PRENATAL VITAMINS W/ FOLIC ACID TABLET (FP) PO SCH (10:09)
[2022-04-26] MEDS: MELATONIN 5 MG TABLETS PO SCH (22:10)
[2022-04-26] MEDS: THIAMINE HCL 100 MG TABLET (FP) PO SCH (22:10)
[2022-04-27] MEDS: PRENATAL VITAMINS W/ FOLIC ACID TABLET (FP) PO SCH (09:13)
[2022-04-27] MEDS: AMMONIUM LACTATE 12% CREAM 140 GM TUBE TP SCH (09:14)
[2022-04-27] MEDS: BUPRENORPHINE/NALOXONE 8 MG/2 MG FILM PACKET SL SCH ×2 (09:14→21:22)
[2022-04-27] MEDS: MAGNESIUM HYDROX 2400MG/30ML ORAL SUSPENSION 30 ML CUP PO PRN (09:15)
[2022-04-27] MEDS: THIAMINE HCL 100 MG TABLET (FP) PO SCH (21:22)
[2022-04-27] MEDS: MELATONIN 5 MG TABLETS PO SCH (21:22)
[2022-04-28 07:05] VITALS: TEMP 98.4
[2022-04-28] MEDS: PRENATAL VITAMINS W/ FOLIC ACID TABLET (FP) PO SCH (09:58)
[2022-04-28] MEDS: AMMONIUM LACTATE 12% CREAM 140 GM TUBE TP SCH (09:59)
[2022-04-28] MEDS: BUPRENORPHINE/NALOXONE 8 MG/2 MG FILM PACKET SL SCH ×2 (11:09→21:28)
[2022-04-28] MEDS: NICOTINE 10 MG CARTRIDGE (INHALER) IH PRN (13:13)
[2022-04-28] MEDS: MELATONIN 5 MG TABLETS PO SCH (21:30)
[2022-04-28] MEDS: THIAMINE HCL 100 MG TABLET (FP) PO SCH (21:30)
[2022-04-29 06:52] VITALS: BP 123/65; PULSE 97
[2022-04-29] MEDS: BUPRENORPHINE/NALOXONE 8 MG/2 MG FILM PACKET SL SCH (09:24)
[2022-04-29] MEDS: AMMONIUM LACTATE 12% CREAM 140 GM TUBE TP SCH (09:33)
[2022-04-29] MEDS: NICOTINE 10 MG CARTRIDGE (INHALER) IH PRN (09:33)
[2022-04-29] MEDS: PRENATAL VITAMINS W/ FOLIC ACID TABLET (FP) PO SCH (09:33)
== END 2022-04-29 10:28 | disposition home or self-care (01) | DRG 895 ==
LOC: YASAS 16:16 → Y3N 22:08 → Y3W 04-05 12:32
PROVIDERS: ADMIT Allergy & Immunology; ATTEND Surgery
PROC: HZ2ZZZZ Detoxification Services for Substance Abuse Treatment (ICD-10-PCS; 2022-03-31)
PROC: HZ42ZZZ Group Counseling for Substance Abuse Treatment, Cognitive-Behavioral (ICD-10-PCS; principal; 2022-04-05)
DX: F11.20 Opioid dependence, uncomplicated (principal); F10.20 Alcohol dependence, uncomplicated; F17.210 Nicotine dependence, cigarettes, uncomplicated; F19.24 Other psychoactive substance dependence with psychoactive substance-induced mood disorder; F41.9 Anxiety disorder, unspecified; I10 Essential (primary) hypertension; I83.93 Asymptomatic varicose veins of bilateral lower extremities; K44.9 Diaphragmatic hernia without obstruction or gangrene; K21.9 Gastro-esophageal reflux disease without esophagitis; Z99.89 Dependence on other enabling machines and devices; Z28.310 Unvaccinated for COVID-19; Z28.9 Immunization not carried out for unspecified reason
CPT/HCPCS: 36415; 80053; 85027; 86780; 87811; C9803-CS; U0003; U0005

== ENCOUNTER 2023-01-25 13:53 | Inpatient (IN) | payer OTHER ==
[2023-01-25 14:35] VITALS: BMI 24.3
[2023-01-25] MEDS ORDERED: AMMONIUM LACTATE 12% LOTION 225 GM BOTTLE TP PRN (17:26)
[2023-01-25] MEDS ORDERED: IBUPROFEN 600 MG TABLET (FP) PO PRN (17:26)
[2023-01-25] MEDS ORDERED: BACLOFEN 10 MG TABLET (FP) PO PRN (17:26)
[2023-01-25] MEDS ORDERED: BENZOCAINE/MENTHOL (CHLORASEPTIC ) LOZENGE MM PRN (17:26)
[2023-01-25] MEDS ORDERED: BENZONATATE 200 MG CAPSULE PO PRN (17:26)
[2023-01-25] MEDS ORDERED: ACETAMINOPHEN 325 MG TABLET (FP) PO PRN (17:26)
[2023-01-25] MEDS ORDERED: hydrOXYzine PAMOATE 25 MG CAPSULE (FP) PO PRN (17:26)
[2023-01-25] MEDS ORDERED: MAGNESIUM HYDROX 2400MG/30ML ORAL SUSPENSION 30 ML CUP PO PRN (17:26)
[2023-01-25] MEDS ORDERED: NALOXONE HCL 0.4 MG/ML VIAL IM PRN (17:26)
[2023-01-25] MEDS ORDERED: IBUPROFEN 400 MG TABLET (FP) PO PRN (17:26)
[2023-01-25] MEDS ORDERED: POLYETHYLENE GLYCOL (HEALTHYLAX) 3350 17 GM PACKET PO PRN (17:26)
[2023-01-25] MEDS ORDERED: NICOTINE 10 MG CARTRIDGE (INHALER) IH PRN (17:26)
[2023-01-25] MEDS ORDERED: DICYCLOMINE HCL 10 MG CAPSULE PO PRN (17:26)
[2023-01-25] MEDS ORDERED: BISMUTH SUBSALICYLATE 524 MG/30 ML PO PRN (17:26)
[2023-01-25] MEDS ORDERED: MAG HYDROX/AL HYDROX/SIMETH 30 ML UNIT-DOSE CUP PO PRN (17:26)
[2023-01-25] MEDS ORDERED: ONDANSETRON *ODT* 4 MG TABLET SL PRN (17:26)
[2023-01-25] MEDS ORDERED: LOPERAMIDE HCL 2 MG CAPSULE PO PRN (17:26)
[2023-01-25] MEDS ORDERED: guaiFENesin 600 MG TABLET.ER (FP) PO PRN (17:26)
[2023-01-25] MEDS ORDERED: NALOXONE HCL (KLOXXADO) 8 MG SPRAY NS PRN (17:26)
[2023-01-25] MEDS: THIAMINE HCL 100 MG TABLET (FP) PO SCH (22:52)
[2023-01-25] MEDS: MELATONIN 5 MG TABLETS PO SCH (22:53)
[2023-01-26] MEDS: PRENATAL VITAMINS W/ FOLIC ACID TABLET (FP) PO SCH (10:35)
[2023-01-26] MEDS ORDERED: methaDONE HCL 10 MG TABLET (FOR DETOX USE ONLY) PO ONE (10:44)
[2023-01-26] MEDS: THIAMINE HCL 100 MG TABLET (FP) PO SCH (22:57)
[2023-01-26] MEDS: MELATONIN 5 MG TABLETS PO SCH (22:57)
[2023-01-27] MEDS: TAMSULOSIN HCL 0.4 MG CAP PO SCH (07:42)
[2023-01-27] MEDS: HYDROCHLOROTHIAZIDE 25 MG TABLET (FP) PO SCH (07:42)
[2023-01-27] MEDS: PRENATAL VITAMINS W/ FOLIC ACID TABLET (FP) PO SCH (11:00)
[2023-01-27 12:02] LABS: HEMATOCRIT 41.3 % (35.4-49); MCH 31.4 pg (25.7-33.7); MCHC 33.9 g/dl (32.0-35.9); MEAN CELL VOLUME 92.5 fl (80-96); MEAN PLT VOLUME 8.1 fl (7.5-11.1); PLATELET COUNT 353 10^3/uL (134-434); RBC 4.47 M/mm3 (4.00-5.60); RDW 13.4 % (11.9-15.9); WHITE BLOOD COUNT 8.3 K/mm3 (4.0-10.0)
[2023-01-27 12:03] LABS: POTASSIUM 3.5 mmol/L (3.5-5.1)
[2023-01-27 12:07] LABS: CALCIUM 9.4 mg/dL (8.5-10.1)
[2023-01-27 12:08] LABS: ALBUMIN 3.6 g/dl (3.4-5.0); BLOOD UREA NITROGEN 13.5 mg/dL (7-18)
[2023-01-27 12:11] LABS: CREATININE 0.8 mg/dL (0.55-1.3)
[2023-01-27 12:13] LABS: BILIRUBIN,TOTAL 1.7 mg/dL (0.2-1); TOT PROT 7.5 g/dl (6.4-8.2)
[2023-01-27] MEDS: THIAMINE HCL 100 MG TABLET (FP) PO SCH (22:52)
[2023-01-27] MEDS: MELATONIN 5 MG TABLETS PO SCH (22:53)
[2023-01-28] MEDS: HYDROCHLOROTHIAZIDE 25 MG TABLET (FP) PO SCH (06:15)
[2023-01-28] MEDS: TAMSULOSIN HCL 0.4 MG CAP PO SCH (07:49)
[2023-01-28] MEDS ORDERED: methaDONE HCL 10 MG TABLET (FOR DETOX USE ONLY) PO ONE (10:00)
[2023-01-28] MEDS: PRENATAL VITAMINS W/ FOLIC ACID TABLET (FP) PO SCH (10:01)
[2023-01-28] MEDS: THIAMINE HCL 100 MG TABLET (FP) PO SCH (23:08)
[2023-01-28] MEDS: MELATONIN 5 MG TABLETS PO SCH (23:08)
[2023-01-29] MEDS: HYDROCHLOROTHIAZIDE 25 MG TABLET (FP) PO SCH (06:23)
[2023-01-29] MEDS: TAMSULOSIN HCL 0.4 MG CAP PO SCH (07:08)
[2023-01-29] MEDS: PRENATAL VITAMINS W/ FOLIC ACID TABLET (FP) PO SCH (12:03)
[2023-01-29] MEDS: MELATONIN 5 MG TABLETS PO SCH (22:35)
[2023-01-29] MEDS: THIAMINE HCL 100 MG TABLET (FP) PO SCH (22:35)
[2023-01-30] MEDS: HYDROCHLOROTHIAZIDE 25 MG TABLET (FP) PO SCH (06:05)
[2023-01-30] MEDS: TAMSULOSIN HCL 0.4 MG CAP PO SCH (07:21)
[2023-01-30] MEDS ORDERED: methaDONE HCL 10 MG TABLET (FOR DETOX USE ONLY) PO ONE (10:00)
[2023-01-30] MEDS: PRENATAL VITAMINS W/ FOLIC ACID TABLET (FP) PO SCH (10:56)
[2023-01-30] MEDS: MELATONIN 5 MG TABLETS PO SCH (23:32)
[2023-01-30] MEDS: THIAMINE HCL 100 MG TABLET (FP) PO SCH (23:32)
[2023-01-31] MEDS: HYDROCHLOROTHIAZIDE 25 MG TABLET (FP) PO SCH (06:26)
[2023-01-31] MEDS: TAMSULOSIN HCL 0.4 MG CAP PO SCH (07:55)
[2023-01-31 08:56] VITALS: BP 109/61; PULSE 88; RESP 17; TEMP 97.3
[2023-01-31] MEDS: PRENATAL VITAMINS W/ FOLIC ACID TABLET (FP) PO SCH (10:37)
[2023-01-31] MEDS ORDERED: TUBERCULIN PPD 5 TU/0.1ML SYRINGE (IN PATIENT USE ONLY) ID ONE (13:33)
== END 2023-01-31 17:00 | disposition home or self-care (01) | DRG 897 ==
LOC: YASAS 13:53 → Y6N 18:05 → Y3W 01-31 15:59
PROVIDERS: ADMIT Allergy & Immunology; ATTEND Psychiatry & Neurology Pain Medicine
PROC: HZ2ZZZZ Detoxification Services for Substance Abuse Treatment (ICD-10-PCS; principal; 2023-01-25)
DX: F11.23 Opioid dependence with withdrawal (principal); F17.210 Nicotine dependence, cigarettes, uncomplicated; I10 Essential (primary) hypertension; I73.9 Peripheral vascular disease, unspecified; K42.9 Umbilical hernia without obstruction or gangrene; N40.0 Benign prostatic hyperplasia without lower urinary tract symptoms; Z86.19 Personal history of other infectious and parasitic diseases; Z99.89 Dependence on other enabling machines and devices; Z28.310 Unvaccinated for COVID-19; Z28.9 Immunization not carried out for unspecified reason; S81.802D Unspecified open wound, left lower leg, subsequent encounter; S81.801D Unspecified open wound, right lower leg, subsequent encounter; X58.XXXD Exposure to other specified factors, subsequent encounter
CPT/HCPCS: 36415; 80053; 85027; 86780; 87635; Q0162

== ENCOUNTER 2023-05-24 13:05 | Inpatient (IN) | payer BC, OTHER ==
[2023-05-24 14:06] VITALS: BMI 28.0
[2023-05-24] MEDS ORDERED: guaiFENesin 600 MG TABLET.ER (FP) PO PRN (16:27)
[2023-05-24] MEDS ORDERED: NALOXONE HCL 0.4 MG/ML VIAL IM PRN (16:27)
[2023-05-24] MEDS ORDERED: ACETAMINOPHEN 325 MG TABLET (FP) PO PRN (16:27)
[2023-05-24] MEDS ORDERED: IBUPROFEN 600 MG TABLET (FP) PO PRN (16:27)
[2023-05-24] MEDS ORDERED: METHOCARBAMOL 500 MG TABLET PO PRN (16:27)
[2023-05-24] MEDS ORDERED: ONDANSETRON *ODT* 4 MG TABLET SL PRN (16:27)
[2023-05-24] MEDS ORDERED: AMMONIUM LACTATE 12% LOTION 225 GM BOTTLE TP PRN (16:27)
[2023-05-24] MEDS ORDERED: MAGNESIUM HYDROX 2400MG/30ML ORAL SUSPENSION 30 ML CUP PO PRN (16:27)
[2023-05-24] MEDS ORDERED: hydrOXYzine PAMOATE 25 MG CAPSULE (FP) PO PRN (16:27)
[2023-05-24] MEDS ORDERED: NALOXONE HCL (KLOXXADO) 8 MG SPRAY NS PRN (16:27)
[2023-05-24] MEDS ORDERED: POLYETHYLENE GLYCOL (HEALTHYLAX) 3350 17 GM PACKET PO PRN (16:27)
[2023-05-24] MEDS ORDERED: MAG HYDROX/AL HYDROX/SIMETH 30 ML UNIT-DOSE CUP PO PRN (16:27)
[2023-05-24] MEDS ORDERED: IBUPROFEN 400 MG TABLET (FP) PO PRN (16:27)
[2023-05-24] MEDS ORDERED: DICYCLOMINE HCL 10 MG CAPSULE PO PRN (16:27)
[2023-05-24] MEDS ORDERED: methaDONE HCL 10 MG TABLET (FOR DETOX USE ONLY) PO ONE (16:27)
[2023-05-24] MEDS ORDERED: LORazepam 1 MG TABLET PO PRN (16:27)
[2023-05-24] MEDS ORDERED: BENZONATATE 200 MG CAPSULE PO PRN (16:27)
[2023-05-24] MEDS ORDERED: cloNIDine HCL 0.1 MG TABLET PO PRN (16:27)
[2023-05-24] MEDS ORDERED: COLLOIDAL OATMEAL 1 BAR EACH TP PRN (16:27)
[2023-05-24] MEDS ORDERED: BISMUTH SUBSALICYLATE 524 MG/30 ML PO PRN (16:27)
[2023-05-24] MEDS ORDERED: BENZOCAINE/MENTHOL (CHLORASEPTIC ) LOZENGE MM PRN (16:27)
[2023-05-24] MEDS ORDERED: LOPERAMIDE HCL 2 MG CAPSULE PO PRN (16:27)
[2023-05-24] MEDS ORDERED: LORazepam 2 MG TABLET ONE (17:16)
[2023-05-24] MEDS ORDERED: methaDONE HCL 10 MG TABLET (FOR DETOX USE ONLY) ONE (17:16)
[2023-05-24] MEDS ORDERED: PRENATAL VITAMINS W/ FOLIC ACID TABLET (FP) PO ONE (17:17)
[2023-05-24] MEDS: PRENATAL VITAMINS W/ FOLIC ACID TABLET (FP) PO SCH (17:21)
[2023-05-24] MEDS: NICOTINE 7 MG/24 HOURS TOPICAL PATCH TD SCH (17:21)
[2023-05-24] MEDS: LORazepam 2 MG TABLET PO SCH ×2 (17:21→22:44)
[2023-05-24] MEDS: THIAMINE HCL 100 MG TABLET (FP) PO SCH (22:44)
[2023-05-24] MEDS: MELATONIN 5 MG TABLETS PO SCH (22:44)
[2023-05-25] MEDS: LORazepam 2 MG TABLET PO SCH ×4 (06:06→23:01)
[2023-05-25] MEDS: HYDROCHLOROTHIAZIDE 25 MG TABLET (FP) PO SCH (07:26)
[2023-05-25 08:55] LABS: HEMATOCRIT 37.8 % (35.4-49); MCH 32.5 pg (25.7-33.7); MCHC 34.4 g/dl (32.0-35.9); MEAN CELL VOLUME 94.5 fl (80-96); MEAN PLT VOLUME 7.4 fl (7.5-11.1); PLATELET COUNT 288 10^3/uL (134-434); RDW 13.5 % (11.9-15.9); WHITE BLOOD COUNT 6.2 K/mm3 (4.0-10.0)
[2023-05-25 08:58] LABS: POTASSIUM 4.1 mmol/L (3.5-5.1)
[2023-05-25 09:14] LABS: CALCIUM 8.8 mg/dL (8.5-10.1)
[2023-05-25 09:15] LABS: ALBUMIN 3.1 g/dl (3.4-5.0); BLOOD UREA NITROGEN 13.1 mg/dL (7-18)
[2023-05-25 09:18] LABS: CREATININE 0.7 mg/dL (0.55-1.3)
[2023-05-25 09:19] LABS: BILIRUBIN,TOTAL 0.4 mg/dL (0.2-1)
[2023-05-25 09:20] LABS: TOT PROT 6.6 g/dl (6.4-8.2)
[2023-05-25] MEDS: TAMSULOSIN HCL 0.4 MG CAP PO SCH (10:32)
[2023-05-25] MEDS: PRENATAL VITAMINS W/ FOLIC ACID TABLET (FP) PO SCH (10:32)
[2023-05-25] MEDS: AMMONIUM LACTATE 12% CREAM 140 GM TUBE TP SCH (10:33)
[2023-05-25] MEDS: NICOTINE 7 MG/24 HOURS TOPICAL PATCH TD SCH (10:35)
[2023-05-25] MEDS: THIAMINE HCL 100 MG TABLET (FP) PO SCH (23:01)
[2023-05-25] MEDS: MELATONIN 5 MG TABLETS PO SCH (23:01)
[2023-05-26] MEDS: LORazepam 1 MG TABLET PO SCH ×4 (05:55→22:42)
[2023-05-26] MEDS: HYDROCHLOROTHIAZIDE 25 MG TABLET (FP) PO SCH (07:21)
[2023-05-26] MEDS ORDERED: methaDONE HCL 10 MG TABLET (FOR DETOX USE ONLY) PO ONE (10:00)
[2023-05-26] MEDS: PRENATAL VITAMINS W/ FOLIC ACID TABLET (FP) PO SCH (10:38)
[2023-05-26] MEDS: AMMONIUM LACTATE 12% CREAM 140 GM TUBE TP SCH (10:39)
[2023-05-26] MEDS: TAMSULOSIN HCL 0.4 MG CAP PO SCH (10:40)
[2023-05-26] MEDS: NICOTINE 7 MG/24 HOURS TOPICAL PATCH TD SCH (10:41)
[2023-05-26] MEDS: THIAMINE HCL 100 MG TABLET (FP) PO SCH (22:42)
[2023-05-26] MEDS: MELATONIN 5 MG TABLETS PO SCH (22:42)
[2023-05-27] MEDS ORDERED: LORazepam 0.5 MG TABLET PO PRN
[2023-05-27] MEDS: LORazepam 0.5 MG TABLET PO SCH ×4 (05:53→22:53)
[2023-05-27] MEDS: HYDROCHLOROTHIAZIDE 25 MG TABLET (FP) PO SCH (08:04)
[2023-05-27] MEDS ORDERED: TRIMETHOBENZAMIDE HCL 200MG/2ML INJ IM PRN (08:55)
[2023-05-27] MEDS: TAMSULOSIN HCL 0.4 MG CAP PO SCH (10:43)
[2023-05-27] MEDS: NICOTINE 7 MG/24 HOURS TOPICAL PATCH TD SCH (10:44)
[2023-05-27] MEDS: PRENATAL VITAMINS W/ FOLIC ACID TABLET (FP) PO SCH (10:44)
[2023-05-27] MEDS: AMMONIUM LACTATE 12% CREAM 140 GM TUBE TP SCH (10:45)
[2023-05-27] MEDS: THIAMINE HCL 100 MG TABLET (FP) PO SCH (22:53)
[2023-05-27] MEDS: MELATONIN 5 MG TABLETS PO SCH (22:53)
[2023-05-28] MEDS ORDERED: LORazepam 0.5 MG TABLET PO ONE (05:00)
[2023-05-28] MEDS: HYDROCHLOROTHIAZIDE 25 MG TABLET (FP) PO SCH (06:20)
[2023-05-28] MEDS ORDERED: methaDONE HCL 10 MG TABLET (FOR DETOX USE ONLY) PO ONE (10:00)
[2023-05-28] MEDS: TAMSULOSIN HCL 0.4 MG CAP PO SCH (10:31)
[2023-05-28] MEDS: AMMONIUM LACTATE 12% CREAM 140 GM TUBE TP SCH (10:31)
[2023-05-28] MEDS: NICOTINE 7 MG/24 HOURS TOPICAL PATCH TD SCH (10:32)
[2023-05-28] MEDS: PRENATAL VITAMINS W/ FOLIC ACID TABLET (FP) PO SCH (10:36)
[2023-05-28] MEDS: MELATONIN 5 MG TABLETS PO SCH (22:57)
[2023-05-28] MEDS: THIAMINE HCL 100 MG TABLET (FP) PO SCH (22:57)
[2023-05-29] MEDS: HYDROCHLOROTHIAZIDE 25 MG TABLET (FP) PO SCH (07:15)
[2023-05-29] MEDS: NICOTINE 7 MG/24 HOURS TOPICAL PATCH TD SCH (10:54)
[2023-05-29] MEDS: AMMONIUM LACTATE 12% CREAM 140 GM TUBE TP SCH (10:54)
[2023-05-29] MEDS: TAMSULOSIN HCL 0.4 MG CAP PO SCH (10:54)
[2023-05-29] MEDS: PRENATAL VITAMINS W/ FOLIC ACID TABLET (FP) PO SCH (10:54)
[2023-05-29] MEDS: MELATONIN 5 MG TABLETS PO SCH (21:30)
[2023-05-29] MEDS: THIAMINE HCL 100 MG TABLET (FP) PO SCH (21:30)
[2023-05-30] MEDS: HYDROCHLOROTHIAZIDE 25 MG TABLET (FP) PO SCH (06:02)
[2023-05-30] MEDS: NICOTINE 7 MG/24 HOURS TOPICAL PATCH TD SCH (09:59)
[2023-05-30] MEDS: PRENATAL VITAMINS W/ FOLIC ACID TABLET (FP) PO SCH (09:59)
[2023-05-30] MEDS: TAMSULOSIN HCL 0.4 MG CAP PO SCH (09:59)
[2023-05-30] MEDS: AMMONIUM LACTATE 12% CREAM 140 GM TUBE TP SCH (09:59)
[2023-05-30] MEDS: MELATONIN 5 MG TABLETS PO SCH (22:35)
[2023-05-30] MEDS: THIAMINE HCL 100 MG TABLET (FP) PO SCH (22:36)
[2023-05-31] MEDS: HYDROCHLOROTHIAZIDE 25 MG TABLET (FP) PO SCH ×2 (06:14→07:57)
[2023-05-31 09:07] VITALS: BP 147/89; PULSE 108; RESP 18; TEMP 97.1
[2023-05-31] MEDS: AMMONIUM LACTATE 12% CREAM 140 GM TUBE TP SCH (10:25)
[2023-05-31] MEDS: PRENATAL VITAMINS W/ FOLIC ACID TABLET (FP) PO SCH (10:25)
[2023-05-31] MEDS: TAMSULOSIN HCL 0.4 MG CAP PO SCH (10:25)
[2023-05-31] MEDS: NICOTINE 7 MG/24 HOURS TOPICAL PATCH TD SCH (10:26)
== END 2023-05-31 11:12 | disposition home or self-care (01) | DRG 897 ==
LOC: YASAS 13:05 → Y3N 16:48
PROVIDERS: ADMIT Allergy & Immunology; ATTEND Surgery
PROC: HZ2ZZZZ Detoxification Services for Substance Abuse Treatment (ICD-10-PCS; principal; 2023-05-24)
DX: F11.23 Opioid dependence with withdrawal (principal); F10.230 Alcohol dependence with withdrawal, uncomplicated; F17.210 Nicotine dependence, cigarettes, uncomplicated; I10 Essential (primary) hypertension; K21.9 Gastro-esophageal reflux disease without esophagitis; N40.0 Benign prostatic hyperplasia without lower urinary tract symptoms; R60.0 Localized edema; Z99.89 Dependence on other enabling machines and devices; Z28.310 Unvaccinated for COVID-19; Z28.9 Immunization not carried out for unspecified reason
CPT/HCPCS: 36415; 80053; 85027; 86780; 87635; 87811

== ENCOUNTER 2024-11-21 10:29 | Inpatient (IN) | payer OTHER ==
[2024-11-21 10:56] VITALS: BMI 30.4
[2024-11-21] MEDS ORDERED: BENZONATATE 200 MG CAPSULE PO PRN (11:01)
[2024-11-21] MEDS ORDERED: BISMUTH SUBSALICYLATE 262 MG/15 ML BTL PO PRN (11:01)
[2024-11-21] MEDS ORDERED: NICOTINE POLACRILEX 4 MG GUM BUC PRN (11:01)
[2024-11-21] MEDS ORDERED: DICYCLOMINE HCL 10 MG CAPSULE PO PRN (11:01)
[2024-11-21] MEDS ORDERED: NALOXONE (NARCAN) HCL 4 MG/0.1 ML SPRAY NS PRN (11:01)
[2024-11-21] MEDS ORDERED: LOPERAMIDE HCL 2 MG CAPSULE PO PRN (11:01)
[2024-11-21] MEDS ORDERED: methaDONE HCL 10 MG TABLET (FOR DETOX USE ONLY) PO PRN (11:01)
[2024-11-21] MEDS ORDERED: MAGNESIUM HYDROX 2400MG/30ML ORAL SUSPENSION 30 ML CUP PO PRN (11:01)
[2024-11-21] MEDS ORDERED: ACETAMINOPHEN 325 MG TABLET (FP) PO PRN (11:01)
[2024-11-21] MEDS ORDERED: IBUPROFEN 400 MG TABLET (FP) PO PRN (11:01)
[2024-11-21] MEDS ORDERED: IBUPROFEN 600 MG TABLET (FP) PO PRN (11:01)
[2024-11-21] MEDS ORDERED: LORazepam 1 MG TABLET PO PRN (11:01)
[2024-11-21] MEDS ORDERED: BENZOCAINE/MENTHOL (CHLORASEPTIC ) LOZENGE MM PRN (11:01)
[2024-11-21] MEDS ORDERED: hydrOXYzine PAMOATE 25 MG CAPSULE (FP) PO PRN (11:01)
[2024-11-21] MEDS ORDERED: ONDANSETRON *ODT* 4 MG TABLET SL PRN (11:01)
[2024-11-21] MEDS ORDERED: guaiFENesin 600 MG TABLET.ER (FP) PO PRN (11:01)
[2024-11-21] MEDS ORDERED: POLYETHYLENE GLYCOL (HEALTHYLAX) 3350 17 GM PACKET PO PRN (11:01)
[2024-11-21] MEDS ORDERED: MAG HYDROX/AL HYDROX/SIMETH 30 ML UNIT-DOSE CUP PO PRN (11:01)
[2024-11-21] MEDS ORDERED: METHOCARBAMOL 500 MG TABLET PO PRN (11:01)
[2024-11-21] MEDS ORDERED: LORazepam 2 MG TABLET ONE (11:59)
[2024-11-21] MEDS ORDERED: BUPRENORPHINE/NALOXONE 0.5 MG/0.125 MG FILM ONE (12:00)
[2024-11-21] MEDS: BUPRENORPHINE/NALOXONE 0.5 MG/0.125 MG FILM SL ONE ×2 (12:03→22:26)
[2024-11-21] MEDS: methaDONE HCL 10 MG TABLET (FOR DETOX USE ONLY) PO ONE (12:03)
[2024-11-21] MEDS: LORazepam 2 MG TABLET PO SCH (12:04)
[2024-11-21] MEDS: cloNIDine HCL 0.1 MG TABLET PO SCH (15:00)
[2024-11-21] MEDS: THIAMINE 100 MG TABLET PO SCH (22:24)
[2024-11-21] MEDS: MELATONIN 5 MG TABLETS PO SCH (22:24)
[2024-11-22] MEDS: PRENATAL VITAMINS W/ FOLIC ACID TABLET (FP) PO SCH (10:41)
[2024-11-22] MEDS: NICOTINE 21 MG/24 HOURS TOPICAL PATCH TD SCH (10:41)
[2024-11-22] MEDS: BUPRENORPHINE/NALOXONE 0.5 MG/0.125 MG FILM SL SCH (10:43)
[2024-11-22] MEDS: AMMONIUM LACTATE 12% LOTION 225 GM BOTTLE TP SCH (12:54)
[2024-11-23] MEDS: LORazepam 1 MG TABLET PO SCH (05:50)
[2024-11-23] MEDS: BUPRENORPHINE/NALOXONE 2 MG/0.5 MG FILM PACKET SL SCH (09:48)
[2024-11-23] MEDS: methaDONE HCL 10 MG TABLET (FOR DETOX USE ONLY) PO ONE (09:49)
[2024-11-24] MEDS ORDERED: LORazepam 0.5 MG TABLET PO PRN
[2024-11-24] MEDS: LORazepam 0.5 MG TABLET PO SCH (06:00)
[2024-11-24] MEDS: BUPRENORPHINE/NALOXONE 4 MG/1 MG FILM PACKET SL SCH (09:59)
[2024-11-25] MEDS: LORazepam 0.5 MG TABLET PO ONE (06:16)
[2024-11-25] MEDS: BUPRENORPHINE/NALOXONE 8 MG/2 MG FILM PACKET SL SCH (09:31)
[2024-11-25] MEDS: methaDONE HCL 10 MG TABLET (FOR DETOX USE ONLY) PO ONE (09:31)
[2024-11-26 06:03] VITALS: RESP 17
[2024-11-26 08:43] VITALS: BP 116/66; PULSE 77; TEMP 96.9
[2024-11-26] MEDS: BUPRENORPHINE/NALOXONE 8 MG/2 MG FILM PACKET SL SCH (10:17)
== END 2024-11-26 11:01 | disposition home or self-care (01) | DRG 897 ==
LOC: YASAS 10:29 → Y3N 11:26
PROVIDERS: ADMIT Allergy & Immunology; ATTEND Allergy & Immunology
PROC: HZ2ZZZZ Detoxification Services for Substance Abuse Treatment (ICD-10-PCS; principal; 2024-11-21)
DX: F11.23 Opioid dependence with withdrawal (principal); L97.929 Non-pressure chronic ulcer of unspecified part of left lower leg with unspecified severity; F10.230 Alcohol dependence with withdrawal, uncomplicated; F17.210 Nicotine dependence, cigarettes, uncomplicated; D41.9 Neoplasm of uncertain behavior of unspecified urinary organ; I10 Essential (primary) hypertension; K44.9 Diaphragmatic hernia without obstruction or gangrene; K21.9 Gastro-esophageal reflux disease without esophagitis; B18.2 Chronic viral hepatitis C; R26.89 Other abnormalities of gait and mobility; Z99.89 Dependence on other enabling machines and devices
CPT/HCPCS: 80305; 80307; 93005; 93010

== ENCOUNTER 2025-01-29 10:21 | Inpatient (IN) | payer OTHER ==
[2025-01-29 10:44] VITALS: BMI 28.0
[2025-01-29] MEDS ORDERED: BENZONATATE 200 MG CAPSULE PO PRN (11:00)
[2025-01-29] MEDS ORDERED: guaiFENesin 600 MG TABLET.ER (FP) PO PRN (11:00)
[2025-01-29] MEDS ORDERED: IBUPROFEN 400 MG TABLET (FP) PO PRN (11:00)
[2025-01-29] MEDS ORDERED: BENZOCAINE/MENTHOL (CHLORASEPTIC ) LOZENGE MM PRN (11:00)
[2025-01-29] MEDS ORDERED: ONDANSETRON *ODT* 4 MG TABLET SL PRN (11:00)
[2025-01-29] MEDS ORDERED: LOPERAMIDE HCL 2 MG CAPSULE PO PRN (11:00)
[2025-01-29] MEDS ORDERED: NICOTINE POLACRILEX 2 MG GUM BUC PRN (11:00)
[2025-01-29] MEDS ORDERED: P-EPHED 60MG/TRIPROLIDI 2.5MG TABLET PO PRN (11:00)
[2025-01-29] MEDS ORDERED: MAG HYDROX/AL HYDROX/SIMETH 30 ML UNIT-DOSE CUP PO PRN (11:00)
[2025-01-29] MEDS ORDERED: ACETAMINOPHEN 325 MG TABLET (FP) PO PRN (11:00)
[2025-01-29] MEDS ORDERED: NALOXONE (NARCAN) HCL 4 MG/0.1 ML SPRAY NS PRN (11:00)
[2025-01-29] MEDS ORDERED: NICOTINE POLACRILEX 2 MG LOZENGE BC PRN (11:00)
[2025-01-29] MEDS ORDERED: MAGNESIUM HYDROX 2400MG/30ML ORAL SUSPENSION 30 ML CUP PO PRN (11:00)
[2025-01-29] MEDS ORDERED: BISMUTH SUBSALICYLATE 262 MG/15 ML BTL PO PRN (11:00)
[2025-01-29] MEDS: CEPHALEXIN MONOHYDRATE 500 MG CAPSULE (UD) PO SCH (13:09)
[2025-01-29] MEDS: IBUPROFEN 600 MG TABLET (FP) PO PRN (17:12)
[2025-01-29] MEDS: THIAMINE 100 MG TABLET PO SCH (21:43)
[2025-01-29] MEDS: MELATONIN 5 MG TABLETS PO SCH (21:43)
[2025-01-30] MEDS: PRENATAL VITAMINS W/ FOLIC ACID TABLET (FP) PO SCH (09:03)
[2025-01-30] MEDS: TAMSULOSIN HCL 0.4 MG CAP PO SCH (09:03)
[2025-01-30 10:58] LABS: MCHC 31.4 g/dl (32.3-36.5); MEAN CELL VOLUME 97.8 fl (79.0-92.2); MEAN PLT VOLUME 10.8 fl (9.4-12.4); RDW 12.3 % (12.2-16.4)
[2025-01-30 11:18] LABS: SGPT/ALT 10.0 U/L (13-61)
[2025-01-30 11:19] LABS: ALK PHOS 146.0 U/L (45-117)
[2025-01-30 11:23] LABS: CO2 28.0 mmol/L (21-32)
[2025-01-30 11:24] LABS: CREATININE 0.8 mg/dL (0.55-1.3); SGOT/AST 7.0 U/L (15-37)
[2025-01-30 12:01] LABS: GLUCOSE,RANDOM 120.0 mg/dL (74-106); TOT PROT 6.7 g/dl (6.4-8.2)
[2025-01-31] MEDS: VITAMINS A AND D TOPICAL OINTMENT TP SCH (23:10)
[2025-02-05] MEDS ORDERED: BUPRENORPHINE HCL 150 MCG, BUPRENORPHINE HCL 75 MCG BC PRN (10:06)
[2025-02-05] MEDS: BUPRENORPHINE HCL 150 MCG, BUPRENORPHINE HCL 75 MCG BC ONE (11:05)
[2025-02-06] MEDS ORDERED: BUPRENORPHINE HCL 150 MCG, BUPRENORPHINE HCL 75 MCG BC PRN
[2025-02-06] MEDS: BUPRENORPHINE HCL 150 MCG, BUPRENORPHINE HCL 75 MCG BC SCH (05:41)
[2025-02-07] MEDS: BUPRENORPHINE HCL 450 MCG FILM BC SCH (05:25)
[2025-02-08] MEDS: BUPRENORPHINE/NALOXONE 4 MG/1 MG FILM PACKET SL SCH (05:33)
[2025-02-09] MEDS: BUPRENORPHINE/NALOXONE 8 MG/2 MG FILM PACKET SL ONE (05:29)
[2025-02-10] MEDS: BUPRENORPHINE/NALOXONE 8 MG/2 MG FILM PACKET SL ONE (10:27)
[2025-02-11] MEDS: BUPRENORPHINE/NALOXONE 8 MG/2 MG FILM PACKET SL SCH (10:26)
[2025-02-11 17:28] LABS: ALK PHOS 163.0 U/L (45-117)
[2025-02-12 09:02] LABS: IRON SERUM 89.0 ug/dL (50-175)
[2025-02-12] MEDS: BUPRENORPHINE/NALOXONE 8 MG/2 MG FILM PACKET SL SCH (17:12)
[2025-02-13] MEDS: BACITRACIN 0.9 GM PACKET TP SCH (15:16)
[2025-02-13] MEDS: MINERAL OIL/PET HY-PHL TOPICAL OINTMENT 454 GM JAR TP SCH (21:30)
[2025-02-19] MEDS: POLYETHYLENE GLYCOL (HEALTHYLAX) 3350 17 GM PACKET PO PRN (10:24)
[2025-02-19] MEDS ORDERED: LACTULOSE 20 GM/30 ML UDC (FOR ORAL USE ONLY) PO PRN (16:56)
[2025-02-19] MEDS: SODIUM PHOSPHATE/NA BIPHOS 133 ML ENEMA RC ONE (20:02)
[2025-02-19] MEDS: BUPRENORPHINE/NALOXONE 8 MG/2 MG FILM PACKET SL SCH (22:06)
[2025-02-25 05:32] VITALS: BP 122/65; PULSE 81; RESP 16; TEMP 97.5
== END 2025-02-26 08:59 | disposition home or self-care (01) | DRG 895 ==
LOC: YASAS 10:21 → Y6N 12:06 → Y3N 12:12 → UNDODISIN 02-04 12:25 → Y3NR 02-04 13:34 → Y3W 02-05 09:57
PROVIDERS: ADMIT Allergy & Immunology; ATTEND Psychiatry & Neurology Pain Medicine
PROC: HZ42ZZZ Group Counseling for Substance Abuse Treatment, Cognitive-Behavioral (ICD-10-PCS; principal; 2025-01-29)
DX: F11.20 Opioid dependence, uncomplicated (principal); L03.115 Cellulitis of right lower limb; L03.116 Cellulitis of left lower limb; F10.20 Alcohol dependence, uncomplicated; F17.210 Nicotine dependence, cigarettes, uncomplicated; F19.24 Other psychoactive substance dependence with psychoactive substance-induced mood disorder; F41.9 Anxiety disorder, unspecified; I73.9 Peripheral vascular disease, unspecified; I10 Essential (primary) hypertension; K21.9 Gastro-esophageal reflux disease without esophagitis; N40.0 Benign prostatic hyperplasia without lower urinary tract symptoms; R60.0 Localized edema; R26.89 Other abnormalities of gait and mobility; Z99.89 Dependence on other enabling machines and devices; Z86.19 Personal history of other infectious and parasitic diseases
CPT/HCPCS: 36415; 80053; 80307; 82728; 82947; 83036; 83540; 83550; 84075; 85027; 86780; 87811